=== PATIENT | female | born 1975 | race Caucasian/White ===

== ENCOUNTER 2017-08-02 10:33 | Inpatient (IN) ==
[2017-08-02] MEDS ORDERED: IOPAMIDOL 100 ML BOTTLE IV ONE (10:34)
[2017-08-02] MEDS ORDERED: LACTATED RINGERS 1,000 ML IV ONE (11:09)
[2017-08-02] MEDS ORDERED: ONDANSETRON 4 MG/2 ML VIAL IV ONE (11:09)
--- NOTE | 2017-08-02 11:22 | Emergency Department Note ---
Nausea/Vomiting/Diarrhea HPI - General Chief complaint: Urogenital-Female Stated complaint: Urinary retention Time Seen by Provider: 08/02/17 10:44 Source: patient Mode of arrival: ambulatory Limitations: no limitations - History of Present Illness HPI Narrative: 42-year-old female presents with nausea and vomiting 2 days. Today is the first day she is able to keep any fluids down but she has not been able to eat yet. She also has some diffuse abdominal pain and some epigastric pain. She states this started after she had pizza 2 nights ago but no one else has symptoms. She states she is not urinating as much as she usually does and is not having bowel movements like she usually does. She is also not been eating or drinking anything. She denies any fevers or chills. She has not vomited today. She has had her appendix out. She is due for her period In a couple weeks. She does not think she could be . - Related Data Home Medications Medication Instructions Recorded Confirmed Lisinopril [Zestril] 20 mg PO DAILY 05/23/15 08/02/17 Norgestimate-Ethinyl Estradiol 1 each PO DAILY 05/24/15 05/10/16 [Ortho Tri-Cyclen 28 Tablet] Previous Rx's Medication Instructions Recorded Cyclobenzaprine [Flexeril] 10 mg PO TID PRN #20 tablet 05/10/16 methylPREDNISolone [Medrol Dose 1 packet PO DAILY #1 tab.ds.pk 05/10/16 Pack] Allergies Allergy/AdvReac Type Severity Reaction Status Date / Time etodolac AdvReac Mild Nausea Verified 08/08/15 11:10 Review of Systems All systems ED: reviewed and negative except as stated. 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 Absent: conjunctival injection Neck: Present: normal inspection, full ROM Chest: Present: normal inspection, symmetric chest wall rise Respiratory: Present: normal lung sounds bilaterally Cardiovascular: Present: tachycardia, normal heart sounds Abdominal: Present: soft, tenderness, normal bowel sounds. Absent: distention, guarding, rebound, rigidity Abdominal tenderness: Present: RUQ, LUQ, epigastrium, mild Extremities: Present: normal inspection, full ROM Neurological: Present: alert, oriented X3 Psychiatric: Present: normal affect, normal mood Skin: Present: warm, dry, intact Course Course Narrative: She will be admitted by Dr. Lopez. He thinks she may have Crohn's disease and needs to be treated for a flare. Cipro and Flagyl have been started. Pain is controlled at this time. Vital Signs Temperature 96.9 F L 08/02/17 10:35 Pulse Rate 118 H 08/02/17 10:35 Respiratory Rate 20 08/02/17 10:35 Blood Pressure 176/107 08/02/17 10:35 Pulse Oximetry (%) 98 08/02/17 10:35 Temperature 96.9 F L 08/02/17 10:35 Pulse Rate 88 08/02/17 12:46 Respiratory Rate 16 08/02/17 12:46 Blood Pressure 126/80 08/02/17 12:46 Pulse Oximetry (%) 98 08/02/17 12:46 Nausea/Vomiting/Diarrhea - Lab Data Lab results reviewed: Yes I reviewed the patient's lab results. Result diagrams: 08/02/17 11:20 08/02/17 11:20 Lab Results 08/02/17 08/02/17 08/02/17 Range/Units 11:20 11:20 11:20 WBC 20.9 H (4.5-11.0) K/mcL RBC 5.07 (4.00-5.20) M/mcL Hgb 15.9 H (12.0-15.0) g/dL Hct 46.9 (36.0-48.0) % MCV 92.4 (80.0-100.0) fL MCH 31.2 (26.0-34.0) pg MCHC 33.8 (31.0-36.0) g/dL RDW 12.1 (11.5-14.5) % Plt Count 463 H (140-440) K/mcL MPV 7.8 (7.4-10.4) fL Gran % 80.4 H (38.0-78.0) % Lymph % (Auto) 13.6 L (15.5-49.0) % [place] % (Auto) 5.3 (1.0-12.0) % Eos % (Auto) 0.4 (0.0-7.0) % Baso % (Auto) 0.3 (0.0-2.0) % Gran # 16.8 H (1.8-8.0) K/mcL Lymph # (Auto) 2.8 (1.5-4.8) K/mcL [place] # (Auto) 1.1 H (0.1-0.9) K/mcL Eos # (Auto) 0.1 (0.0-0.7) K/mcL Baso # (Auto) 0.1 (0.0-0.3) K/mcL VBG Lactic Acid (0.5-2.2) mmol/L Sodium 131 L (133-145) mmol/L Potassium 3.0 L (3.3-5.1) mmol/L Chloride 89 L (96-108) mmol/L Carbon Dioxide 26 (22-30) mmol/L Anion Gap 16.0 (8-16) BUN 9 (6-20) mg/dl Creatinine 1.0 (0.6-1.1) mg/dl GFR Calculation 70 Glucose 131 H (70-105) mg/dL Calcium 9.1 (8.6-10.4) mg/dl Total Bilirubin 0.6 (0.0-1.0) mg/dL AST 20 (0-37) U/l ALT 13 (0-40) U/l Alkaline Phosphatase 51 (39-117) U/L Total Protein 8.0 (5.9-8.4) gm/dL Albumin 4.6 (3.2-5.2) gm/dL Globulin 3.4 (2.2-3.7) gm/dL Albumin/Globulin Ratio 1.4 (1.0-2.3) Lipase 25 (7-60) U/L Urine Color Urine Appearance Urine pH (5.0-9.0) Ur Specific [place] (1.000-1.035) Urine Protein (NEG) mg/dL Urine Glucose (UA) (NEG) mg/dL Urine Ketones (NEG) mg/dL Urine Occult Blood (<0.03) mg/dL Urine Nitrate (NEG) Urine Bilirubin (NEG) mg/dL Urine Urobilinogen (NEG) mg/dL Ur Leukocyte Esterase (NEG) /uL Urine RBC (0-1) /hpf Urine WBC (0-4) /hpf Ur Squamous Epith Cells (0-4) /hpf Urine Bacteria (0) /hpf Hyaline Casts (0-2) /lpf Urine Mucus (0) /hpf Ur Culture Indicated? 08/02/17 08/02/17 Range/Units 11:26 12:20 WBC (4.5-11.0) K/mcL RBC (4.00-5.20) M/mcL Hgb (12.0-15.0) g/dL Hct (36.0-48.0) % MCV (80.0-100.0) fL MCH (26.0-34.0) pg MCHC (31.0-36.0) g/dL RDW (11.5-14.5) % Plt Count (140-440) K/mcL MPV (7.4-10.4) fL Gran % (38.0-78.0) % Lymph % (Auto) (15.5-49.0) % [place] % (Auto) (1.0-12.0) % Eos % (Auto) (0.0-7.0) % Baso % (Auto) (0.0-2.0) % Gran # (1.8-8.0) K/mcL Lymph # (Auto) (1.5-4.8) K/mcL [place] # (Auto) (0.1-0.9) K/mcL Eos # (Auto) (0.0-0.7) K/mcL Baso # (Auto) (0.0-0.3) K/mcL VBG Lactic Acid 1.4 (0.5-2.2) mmol/L Sodium (133-145) mmol/L Potassium (3.3-5.1) mmol/L Chloride (96-108) mmol/L Carbon Dioxide (22-30) mmol/L Anion Gap (8-16) BUN (6-20) mg/dl Creatinine (0.6-1.1) mg/dl GFR Calculation Glucose (70-105) mg/dL Calcium (8.6-10.4) mg/dl Total Bilirubin (0.0-1.0) mg/dL AST (0-37) U/l ALT (0-40) U/l Alkaline Phosphatase (39-117) U/L Total Protein (5.9-8.4) gm/dL Albumin (3.2-5.2) gm/dL Globulin (2.2-3.7) gm/dL Albumin/Globulin Ratio (1.0-2.3) Lipase (7-60) U/L Urine Color Yellow Urine Appearance Hazy Urine pH 6.0 (5.0-9.0) Ur Specific [place] 1.013 (1.000-1.035) Urine Protein Neg (NEG) mg/dL Urine Glucose (UA) Negative (NEG) mg/dL Urine Ketones Neg (NEG) mg/dL Urine Occult Blood Neg (<0.03) mg/dL Urine Nitrate Neg (NEG) Urine Bilirubin Neg (NEG) mg/dL Urine Urobilinogen Neg (NEG) mg/dL Ur Leukocyte Esterase Neg (NEG) /uL Urine RBC 1 (0-1) /hpf Urine WBC 4 (0-4) /hpf Ur Squamous Epith Cells 9 H (0-4) /hpf Urine Bacteria Few A (0) /hpf Hyaline Casts 6 H (0-2) /lpf Urine Mucus Few (0) /hpf Ur Culture Indicated? No - Radiology Data Radiology results reviewed: Yes I reviewed the patient's radiology results. 1. Small amount of ascites. No peritoneal mass or enhancement. 2. Abnormal ileum with dilatation and wall thickening. Small bowel lymphoma is possible. Systemic processes including celiac disease or possible. 3. Small right pleural effusion. Right lower lobe volume loss or infiltrate Disposition Pt seen by COUNTY MANAGER/PA only: Yes Clinical Impression: Abdominal pain, Ascites Disposition: Xfer As Inpt ([facility]) Condition: Fair Referrals: Maggy Toure ARNP [Primary Care Provider] -
[2017-08-02 11:55] LABS: Basophils # (Auto) 0.1 K/mcL (0.0-0.3); Basophils % (Auto) 0.3 % (0.0-2.0); Eosinophils # (Auto) 0.1 K/mcL (0.0-0.7); Eosinophils % (Auto) 0.4 % (0.0-7.0); Granulocytes % (Auto) 80.4 % (38.0-78.0); Lymphocytes # (Auto) 2.8 K/mcL (1.5-4.8); Lymphocytes % (Auto) 13.6 % (15.5-49.0); Mean Cell Volume 92.4 fL (80.0-100.0); Mean Corpuscular HGB Conc 33.8 g/dL (31.0-36.0); Mean Corpuscular Hemoglobin 31.2 pg (26.0-34.0); Monocytes # (Auto) 1.1 K/mcL (0.1-0.9); Monocytes % (Auto) 5.3 % (1.0-12.0); Platelet Count 463 K/mcL (140-440); RBC 5.07 M/mcL (4.00-5.20); Red Cell Distribution Width 12.1 % (11.5-14.5)
[2017-08-02 11:56] LABS: Appearance,Urine HAZY; Bacteria,Urine FEW /hpf (0); Bilirubin,Urine NEG (NEG); Color,Urine YELLOW; Glucose,Urine (UA) NEGATIVE (NEG); Leukocyte Esterase,Urine NEG /uL (NEG); Mucus,Urine FEW /hpf (0); Protein,Urine NEG (NEG); Specific Gravity,Urine 1.013 (1.000-1.035); Urine Blood NEG mg/dL (<0.03); Urine Hyaline Cast 6 /lpf (0-2); Urine RBC 1 /hpf (0-1); Urine Squamous Epithelial Cell 9 /hpf (0-4); Urine WBC 4 /hpf (0-4); Urobilinogen,Urine NEG (NEG)
[2017-08-02 12:06] LABS: ALT/SGPT 13 U/l (0-40); Albumin 4.6 gm/dL (3.2-5.2); Albumin/Globulin Ratio 1.4 (1.0-2.3); Alkaline Phosphatase 51 U/L (39-117); Blood Urea Nitrogen 9 mg/dl (6-20)
[2017-08-02] MEDS ORDERED: PROMETHAZINE 25 MG/ML VIAL IV ONE (12:08)
[2017-08-02] MEDS ORDERED: fentaNYL 100 MCG/2 ML VIAL IV ONE (12:08)
[2017-08-02 13:18] LABS: Lipase 25 U/L (7-60)
[2017-08-02] MEDS ORDERED: metroNIDAZOLE 500 MG/100 ML BAG IV ONE (14:12)
[2017-08-02] MEDS ORDERED: CIPROFLOXACIN 400 MG/200 ML BAG IV ONE (14:12)
--- NOTE | 2017-08-02 14:34 | Cat Scan Report ---
ORIGINAL REPORT CLINICAL INFORMATION: Abdominal pain. Nausea and vomiting. Elevated white blood cell count (20,000). COMPARISON: 05/23/2015 TECHNIQUE: Axial images were obtained through the abdomen and pelvis. Sagittally and coronally reformatted images. 80 mL contrast material injected intravenously. Oral contrast material was given FINDINGS: Small right pleural effusion and right basilar volume loss or infiltrate. No left pleural effusion. No pericardial effusion. There is a small amount of ascitic fluid. There is mild perihepatic fluid. There is fluid within the pelvis and right lower quadrant. No peritoneal mass or enhancement identified. Ascitic fluid appears simple without septation or loculation. Etiology is not certain. Liver is negative. No focal intrahepatic abnormality. Liver contour is smooth. No evidence for cirrhosis. No focal intrahepatic abnormality. Gallbladder is present. No calcified gallstones. No dilated bile ducts. Pancreas appears intrinsically normal. No pancreatic mass. No pancreatic edema or enlargement. No evidence for pancreatitis. No peripancreatic contained fluid collection. No pseudocyst. No splenomegaly. Normal enhancement of splenic and portal veins. Negative adrenal glands. Kidneys are negative. No solid or cystic mass. No hydronephrosis. No retroperitoneal lymphadenopathy. There are mesenteric lymph nodes nodes but these are not enlarged. There are probably physiologic and nonspecific. Uterus is present and anteflexed. No ovarian mass. : Is normal. No detectable colonic mass. Appendix is been removed. No diverticulitis. Small bowel is abnormal. The jejunum is within normal limits. Ileum is dilated. Ileum measures approximately 3.5 cm in cross-sectional diameter. In the distal ileum in the right lower quadrant there is diffuse wall thickening. No evidence for mechanical small bowel obstruction. The terminal ileum is normal and contrast material is present in the cecum. Primary small bowel abnormality is considered most likely. Neoplasm is possible. Small bowel lymphoma arising in the distal ileum is possible. Systemic disease including celiac disease is possible. Surgical evaluation or capsule endoscopy may be helpful. Lumbar spine is negative. Sacrum and pelvis are negative. Abdominal aorta is normal. Celiac trunk and superior mesenteric artery are normal. Normal enhancement of superior mesenteric vein. IMPRESSION: 1. Small amount of ascites. No peritoneal mass or enhancement. 2. Abnormal ileum with dilatation and wall thickening. Small bowel lymphoma is possible. Systemic processes including celiac disease or possible. 3. Small right pleural effusion. Right lower lobe volume loss or infiltrate The exam was performed using radiation dose optimization techniques including, but not limited to, automated exposure control, adjustment of the mA and/or kV according to patient size and use of iterative reconstruction technique. ADDENDUM #1 Addendum: Dr. Lopez suggesting Crohn's disease as a possible diagnosis. There are no strictures or evidence for fistula. Terminal ileum is not significantly narrowed. There is no discrete mass. Crohn's disease is however possible as there is bowel wall thickening, especially in the ileum. Hypervascularity is not appreciated. There is no intramural fat. Interpreted and Authenticated by: Jayme Iqbal 08/02/17
[2017-08-02] MEDS ORDERED: PROMETHAZINE 25 MG/ML VIAL IV PRN ×2 (14:50→15:51)
[2017-08-02] MEDS ORDERED: 0.9 % SODIUM CHLORIDE 1,000 ML IV SCH (15:30)
[2017-08-02] MEDS ORDERED: ONDANSETRON 4 MG/2 ML VIAL IV PRN (15:46)
[2017-08-02] MEDS ORDERED: HYDROmorphone 2 MG/ML VIAL IV PRN (15:46)
[2017-08-02] MEDS ORDERED: ACETAMINOPHEN 325 MG TABLET PO PRN (15:46)
[2017-08-02] MEDS: 0.9 % SODIUM CHLORIDE 1,000 ML IV SCH (16:10)
--- NOTE | 2017-08-02 16:19 | General Surg History&Physical ---
History of Present Illness Patient information: Note initiated : 08/02/17 at 4:16 pm Service Date, if different from initiated Date: [] Patient: Kelly Nj a 42 y/o F admitted on 08/02/17 for Urinary retention. Chief Complaint: [] HPI: Ms. Nj is a 42 year old F admitted with abdominal pain nausea vomiting and diarrhea. The patient gives a two-week history of general malaise. She has a 2 day history of mid abdominal pain primarily in the lower abdomen but also in the upper abdomen. This pain was associated with multiple episodes of nausea and vomiting and she estimates that she vomited over 20 times. She also had 2 episodes of explosive diarrhea. She did not have any rectal bleeding. Her pain now is primarily in the hypogastrium. She gives a history of having intermittent diarrhea over the past few weeks. She was seen in the emergency room where it was noted that she had an elevated white blood count of 20.9. CT scan shows thickening of the distal ileum leading up to the cecum. The patient had appendectomy in May 2015. Pathology on that was said to show simple acute appendicitis. She is admitted with presumed inflammatory bowel disease and will be treated accordingly. Inflammatory bowel disease panel will be ordered. After initial treatment she will be probably discharged on Pentasa and low-dose steroids with follow-up by gastroenterology. Review of Systems All systems PM: reviewed and no additional remarkable complaints except as stated - Constitutional malaise - Musculoskeletal neck pain - Neurological headache(s) Past History Past medical history: No known chronic medical illness Past surgical history: Right knee arthroscopy Laparoscopic appendectomy C-spine fusion from old cervical injury with this disease Past family history: Diabetes mellitus Breast cancer Lymphoma Neck cancer Past social history: Never smoker Occasional alcohol intake Denies drug use Medications and Allergies Home Medications Medication Instructions Recorded Confirmed Type Norgestimate-Ethinyl Estradiol 1 each PO DAILY 05/24/15 08/02/17 History [Ortho Tri-Cyclen 28 Tablet] Citalopram [Celexa] 20 mg PO DAILY 08/02/17 08/02/17 History Cyclobenzaprine HCl 5 mg PO DAILY PRN 08/02/17 08/02/17 History Lisinopril/Hctz 20/12.5MG 1 tablet PO DAILY 08/02/17 08/02/17 History [Zestoretic 20/12.5MG] Metoprolol Tartrate [Lopressor] 25 mg PO DAILY 08/02/17 08/02/17 History Allergies Allergy/AdvReac Type Severity Reaction Status Date / Time etodolac AdvReac Mild Nausea Verified 08/08/15 11:10 Exam Temp Pulse Resp BP Pulse Ox 98.7 F 84 16 125/83 97 08/02/17 15:21 08/02/17 15:21 08/02/17 12:46 08/02/17 15:21 08/02/17 15:21 - General physical appearance well developed, well nourished, moderate pain, obese - Eyes PERRL, normal ocular movement - ENT normal pinna, normal nares, normal mucosa, no hearing loss, no congestion - Head Head exam IM: Present: atraumatic, normocephalic - Neck no masses, no bruits, trachea midline, no lymphadectomy, no venous distension - Cardiovascular Cardiovascular exam IM: Present: normal rate and rhythm, RRR, +S1, +S2. Absent : JVD, tachycardia - Respiratory normal expansion, normal respiratory effort, clear to percussion, clear to auscultation - Abdomen Abdomen: Present: soft, tender (tenderness in mid abdomen and periumbilical area and right lower quadrant; more prominent with deep palpation; no mass noted ; good active bowel sounds), bowel sounds Hernia: Present: none - Genitourinary Present: normal external genitalia - Integumentary Present: no rash, no growths, no abnormal pigmentation - Neurologic Present: normal coordination, normal sensation - Musculoskeletal Present: normal gait, normal posture - Psychiatric Present: oriented to time, oriented to person, oriented to place, speech is normal, memory intact Assessment and Plan (1) Inflammatory bowel disease Zosyn 3.375 g IV every 6 hours Flagyl 500 mg IV every 6 hours Solu-Medrol 62 mg IV every 12 hours Inflammatory bowel disease panel Slowly advance diet as patient tolerates Symptomatic treatment of nausea and vomiting Status: Acute (2) Hypokalemia, gastrointestinal losses Replacement of potassium chloride IV and monitor closely Status: Acute
[2017-08-02] MEDS ORDERED: POTASSIUM CHLORIDE 40 MEQ in DEXTROSE 5% IN WATER 500 ML IV ONE (16:25)
[2017-08-02] MEDS: PANTOPRAZOLE 40 MG VIAL IV SCH (16:57)
[2017-08-02] MEDS: PIPERACILLIN SODIUM/TAZOBACTAM 3.375 GM in DEXTROSE 5% IN WATER 50 ML IV SCH (17:13)
[2017-08-02] MEDS ORDERED: POTASSIUM CHLORIDE 20 MEQ/10 ML VIAL IV ONE ×2 (18:00→22:00)
[2017-08-02] MEDS: metroNIDAZOLE 500 MG/100 ML BAG IV SCH ×2 (18:05→23:27)
[2017-08-02] MEDS: 0.9 % SODIUM CHLORIDE 10 ML SYRINGE IV SCH ×2 (21:23)
[2017-08-02] MEDS: methylPREDNISolone SOD SUCC 125 MG/2 ML VIAL IV SCH (21:23)
[2017-08-02] MEDS: ZOLPIDEM 5 MG TABLET PO PRN (21:24)
[2017-08-02] MEDS: POTASSIUM CHLORIDE 40 MEQ in DEXTROSE 5% IN WATER 500 ML IV SCH (22:27)
[2017-08-03] MEDS: PIPERACILLIN SODIUM/TAZOBACTAM 3.375 GM in DEXTROSE 5% IN WATER 50 ML IV SCH ×4 (00:53→18:59)
[2017-08-03] MEDS: 0.9 % SODIUM CHLORIDE 1,000 ML IV SCH ×3 (02:44→14:00)
[2017-08-03] MEDS: 0.9 % SODIUM CHLORIDE 10 ML SYRINGE IV SCH ×6 (05:38→20:41)
[2017-08-03] MEDS: metroNIDAZOLE 500 MG/100 ML BAG IV SCH ×4 (05:40→23:52)
[2017-08-03 05:57] LABS: Basophils # (Auto) 0 K/mcL (0.0-0.3); Basophils % (Auto) 0 % (0.0-2.0); Eosinophils # (Auto) 0.2 K/mcL (0.0-0.7); Eosinophils % (Auto) 1.7 % (0.0-7.0); Granulocytes % (Auto) 91.2 % (38.0-78.0); Lymphocytes # (Auto) 0.7 K/mcL (1.5-4.8); Lymphocytes % (Auto) 6.1 % (15.5-49.0); Mean Cell Volume 93.2 fL (80.0-100.0); Mean Corpuscular HGB Conc 34.1 g/dL (31.0-36.0); Mean Corpuscular Hemoglobin 31.8 pg (26.0-34.0); Monocytes # (Auto) 0.1 K/mcL (0.1-0.9); Platelet Count 286 K/mcL (140-440); RBC 3.59 M/mcL (4.00-5.20); Red Cell Distribution Width 12.1 % (11.5-14.5)
[2017-08-03 06:01] LABS: ALT/SGPT 10 U/l (0-40); Albumin 3.8 gm/dL (3.2-5.2); Albumin/Globulin Ratio 1.6 (1.0-2.3); Alkaline Phosphatase 36 U/L (39-117); Bilirubin,Direct < 0.2 mg/dL (0.0-0.3); Blood Urea Nitrogen 7 mg/dl (6-20); Gamma Glutamyl Transpeptidase 51 U/L (5-36); Uric Acid 3.9 mg/dL (2.5-8.0)
[2017-08-03] MEDS ORDERED: POTASSIUM CHLORIDE 20 MEQ/10 ML VIAL IV ONE (06:14)
[2017-08-03] MEDS: POTASSIUM CHLORIDE 40 MEQ in DEXTROSE 5% IN WATER 500 ML IV SCH (06:26)
[2017-08-03] MEDS: PANTOPRAZOLE 40 MG VIAL IV SCH ×2 (06:39→17:04)
[2017-08-03] MEDS: CITALOPRAM 20 MG TABLET PO SCH (08:35)
[2017-08-03] MEDS: methylPREDNISolone SOD SUCC 125 MG/2 ML VIAL IV SCH ×2 (08:35→20:41)
[2017-08-03] MEDS: ENOXAPARIN 40 MG/0.4 ML SYRINGE SQ SCH (08:35)
[2017-08-03] MEDS ORDERED: MAGNESIUM SULFATE 32.48 MEQ in DEXTROSE 5% IN WATER 50 ML IV ONE (12:38)
[2017-08-03] MEDS ORDERED: POTASSIUM PHOSPHATE 40 MEQ in DEXTROSE 5% IN WATER 500 ML IV ONE ×2 (13:00→13:32)
[2017-08-03] MEDS ORDERED: MAGNESIUM SULFATE 4 GM/100 ML BAG IV ONE ×2 (13:00→16:00)
--- NOTE | 2017-08-03 13:40 | General Surgery Progress Note ---
Subjective Patient reports: feels better, pain is less, tolerating liquids well, no flatus , no bowel movement, afebrile Narrative: Note initiated : 08/03/17 at 1:35 pm Service Date, if different from initiated Date: [] Patient: Kelly Nj 42 y/o F admitted on 08/02/17 for Urinary retention. Chief Complaint: [patient feels much better. Her abdominal pain is less.. She has had more diarrheal stools. She has less tenderness. She has been afebrile.. Her white blood count is down to 11.1 on the specimen tested. In spite of these values I'm somewhat concerned that this may be a spurious test result.] Objective Temp Pulse Resp BP Pulse Ox 98.1 F 95 H 16 162/75 95 08/03/17 11:17 08/03/17 03:02 08/03/17 11:17 08/03/17 11:17 08/03/17 11:17 - Additional Data Intake & Output - Last 24 hours: Intake & Output 08/01/17 08/02/17 08/03/17 08/04/17 05:59 05:59 05:59 05:59 Intake Total 3100 / 3100 190 / 190 Output Total 2024 / 2024 350 / 350 Balance 1075 / 1075 -160 / -160 Weight 167 lb 167 lb - General physical appearance well developed, well nourished, no distress - Eyes PERRL, normal ocular movement - ENT normal pinna, normal nares, normal mucosa, no hearing loss, no congestion - Neck no masses, no bruits, trachea midline, no lymphadectomy, no venous distension - Respiratory normal expansion, normal respiratory effort, clear to percussion, clear to auscultation - Cardiovascular Cardiovascular exam: Present: normal rate and rhythm, RRR, +S1, +S2. Absent: JVD, tachycardia - Abdomen tender (much less tenderness in right lower quadrant and hypogastric region), bowel sounds (present), surgical scars (none), masses (none) - Integumentary no rash, no growths, no abnormal pigmentation - Neurologic normal coordination, normal sensation - Musculoskeletal normal gait, normal posture - Psychiatric oriented to time, oriented to person, oriented to place, speech is normal, memory intact - Labs 08/03/17 04:14 08/03/17 04:14 Diabetes panel 08/02/17 08/03/17 Range/Units 22:48 04:14 Sodium 135 (133-145) mmol/L Potassium 3.3 3.8 (3.3-5.1) mmol/L Chloride 99 (96-108) mmol/L Carbon Dioxide 25 (22-30) mmol/L BUN 7 (6-20) mg/dl Creatinine 0.8 (0.6-1.1) mg/dl Glucose 170 H (70-105) mg/dL Calcium 7.8 L (8.6-10.4) mg/dl AST 19 (0-37) U/l ALT 10 (0-40) U/l Alkaline Phosphatase 36 L (39-117) U/L Total Protein 6.2 (5.9-8.4) gm/dL Albumin 3.8 (3.2-5.2) gm/dL Triglycerides 120 (<150) mg/dl Calcium panel 08/03/17 Range/Units 04:14 Calcium 7.8 L (8.6-10.4) mg/dl Phosphorus 1.7 L (2.7-4.5) mg/dL Albumin 3.8 (3.2-5.2) gm/dL Pituitary panel 08/02/17 08/03/17 Range/Units 22:48 04:14 Sodium 135 (133-145) mmol/L Potassium 3.3 3.8 (3.3-5.1) mmol/L Chloride 99 (96-108) mmol/L Carbon Dioxide 25 (22-30) mmol/L BUN 7 (6-20) mg/dl Creatinine 0.8 (0.6-1.1) mg/dl Glucose 170 H (70-105) mg/dL Calcium 7.8 L (8.6-10.4) mg/dl Adrenal panel 08/02/17 08/03/17 Range/Units 22:48 04:14 Sodium 135 (133-145) mmol/L Potassium 3.3 3.8 (3.3-5.1) mmol/L Chloride 99 (96-108) mmol/L Carbon Dioxide 25 (22-30) mmol/L BUN 7 (6-20) mg/dl Creatinine 0.8 (0.6-1.1) mg/dl Glucose 170 H (70-105) mg/dL Calcium 7.8 L (8.6-10.4) mg/dl Total Bilirubin 0.3 (0.0-1.0) mg/dL AST 19 (0-37) U/l ALT 10 (0-40) U/l Alkaline Phosphatase 36 L (39-117) U/L Total Protein 6.2 (5.9-8.4) gm/dL Albumin 3.8 (3.2-5.2) gm/dL Assessment and Plan (1) Inflammatory bowel disease Status: Acute Assessment and plan: Clinically improved with much less pain Current Visit: Yes (2) Hypokalemia, gastrointestinal losses Status: Acute Assessment and plan: Resolved by today's test result; will check another value in the morning Current Visit: No - Time Spent With Patient Total time spent is greater than 50% in coordination of care (as documented) at patient's floor/unit and/or counseling patient:
[2017-08-03] MEDS: LISINOPRIL 20 MG TABLET PO SCH (13:59)
[2017-08-03] MEDS: ZOLPIDEM 5 MG TABLET PO PRN (20:41)
[2017-08-03] MEDS: CYCLOBENZAPRINE 10 MG TABLET PO PRN (21:35)
[2017-08-04] MEDS: 0.9 % SODIUM CHLORIDE 1,000 ML IV SCH ×4 (00:01→16:12)
[2017-08-04] MEDS: PIPERACILLIN SODIUM/TAZOBACTAM 3.375 GM in DEXTROSE 5% IN WATER 50 ML IV SCH ×4 (01:14→19:40)
[2017-08-04] MEDS: metroNIDAZOLE 500 MG/100 ML BAG IV SCH ×4 (05:30→23:50)
[2017-08-04] MEDS: 0.9 % SODIUM CHLORIDE 10 ML SYRINGE IV SCH ×5 (05:30→20:15)
[2017-08-04 06:01] LABS: ALT/SGPT 10 U/l (0-40); Albumin 3.7 gm/dL (3.2-5.2); Albumin/Globulin Ratio 1.6 (1.0-2.3); Alkaline Phosphatase 35 U/L (39-117); Bilirubin,Direct < 0.2 mg/dL (0.0-0.3); Blood Urea Nitrogen 6 mg/dl (6-20); Gamma Glutamyl Transpeptidase 68 U/L (5-36); Uric Acid 2.1 mg/dL (2.5-8.0)
[2017-08-04 06:11] LABS: Basophils # (Auto) 0 K/mcL (0.0-0.3); Basophils % (Auto) 0.2 % (0.0-2.0); Eosinophils # (Auto) 0.1 K/mcL (0.0-0.7); Eosinophils % (Auto) 0.6 % (0.0-7.0); Granulocytes % (Auto) 90.5 % (38.0-78.0); Lymphocytes # (Auto) 0.9 K/mcL (1.5-4.8); Lymphocytes % (Auto) 6.4 % (15.5-49.0); Mean Cell Volume 91.4 fL (80.0-100.0); Mean Corpuscular HGB Conc 35.1 g/dL (31.0-36.0); Monocytes # (Auto) 0.3 K/mcL (0.1-0.9); Monocytes % (Auto) 2.3 % (1.0-12.0); Platelet Count 299 K/mcL (140-440); RBC 3.34 M/mcL (4.00-5.20); Red Cell Distribution Width 11.8 % (11.5-14.5)
[2017-08-04] MEDS: PANTOPRAZOLE 40 MG VIAL IV SCH (06:43)
[2017-08-04] MEDS: CYCLOBENZAPRINE 10 MG TABLET PO PRN (06:53)
[2017-08-04] MEDS: CITALOPRAM 20 MG TABLET PO SCH (08:47)
[2017-08-04] MEDS: ENOXAPARIN 40 MG/0.4 ML SYRINGE SQ SCH (08:47)
[2017-08-04] MEDS: LISINOPRIL 20 MG TABLET PO SCH (08:47)
[2017-08-04] MEDS: HYDROCHLOROTHIAZIDE 12.5 MG CAPSULE PO SCH (08:47)
[2017-08-04] MEDS: METOPROLOL TARTRATE 25 MG TABLET PO SCH (08:47)
[2017-08-04] MEDS: methylPREDNISolone SOD SUCC 125 MG/2 ML VIAL IV SCH ×2 (08:47→20:14)
[2017-08-04] MEDS ORDERED: LISINOPRIL 20 MG TABLET PO SCH (09:00)
[2017-08-04] MEDS ORDERED: LISINOPRIL/HCTZ 20/12.5MG TABLET PO SCH (09:00)
--- NOTE | 2017-08-04 15:00 | General Surgery Progress Note ---
Subjective Patient reports: feels better, pain is less, tolerating liquids well, flatus, bowel movement, diarrhea, afebrile Narrative: Note initiated : 08/04/17 at 2:58 pm Service Date, if different from initiated Date: [] Patient: Kelly Nj 42 y/o F admitted on 08/02/17 for Urinary retention. Chief Complaint: [patient is feeling better. she is tolerating clear liquids without difficulty and complains of being hungry. She denies nausea. She is having multiple liquid bowel movements with some crampy pain prior to having her bowel movements. She is afebrile. White blood count is 13.5. Electrolytes are unremarkable.] Objective Temp Pulse Resp BP Pulse Ox 97.6 F 100 H 18 172/91 95 08/04/17 11:58 08/04/17 03:57 08/04/17 11:58 08/04/17 07:07 08/04/17 11:58 - Additional Data Intake & Output - Last 24 hours: Intake & Output 08/02/17 08/03/17 08/04/17 08/05/17 05:59 05:59 05:59 05:59 Intake Total 3100 / 3100 4510 / 4510 1790 / 1790 Output Total 2024 / 2024 3150 / 3150 1200 / 1200 Balance 1075 / 1075 1360 / 1360 590 / 590 Weight 167 lb 193 lb 1.6 oz - General physical appearance well developed, well nourished, no distress - Eyes PERRL - ENT normal pinna, normal nares, normal mucosa, no hearing loss, no congestion - Neck no masses, no bruits, trachea midline, no lymphadectomy, no venous distension - Respiratory normal expansion, normal respiratory effort, clear to percussion, clear to auscultation - Cardiovascular Cardiovascular exam: Present: normal rate and rhythm, RRR, +S1, +S2. Absent: JVD, tachycardia - Abdomen non tender, bowel sounds (present), surgical scars (none), masses (none) - Integumentary no rash, no growths, no abnormal pigmentation - Neurologic normal coordination, normal sensation - Musculoskeletal normal gait, normal posture - Psychiatric oriented to time, oriented to person, oriented to place, speech is normal, memory intact - Labs 08/04/17 04:26 05/28/18 04:26 Diabetes panel 08/03/17 08/04/17 Range/Units 18:42 04:26 Sodium 138 (133-145) mmol/L Potassium 3.9 4.0 (3.3-5.1) mmol/L Chloride 103 (96-108) mmol/L Carbon Dioxide 23 (22-30) mmol/L BUN 6 (6-20) mg/dl Creatinine 0.7 (0.6-1.1) mg/dl Glucose 142 H (70-105) mg/dL Calcium 7.3 L (8.6-10.4) mg/dl AST 14 (0-37) U/l ALT 10 (0-40) U/l Alkaline Phosphatase 35 L (39-117) U/L Total Protein 6.0 (5.9-8.4) gm/dL Albumin 3.7 (3.2-5.2) gm/dL Triglycerides 124 (<150) mg/dl Calcium panel 08/04/17 Range/Units 04:26 Calcium 7.3 L (8.6-10.4) mg/dl Phosphorus 3.3 (2.7-4.5) mg/dL Albumin 3.7 (3.2-5.2) gm/dL Pituitary panel 08/03/17 08/04/17 Range/Units 18:42 04:26 Sodium 138 (133-145) mmol/L Potassium 3.9 4.0 (3.3-5.1) mmol/L Chloride 103 (96-108) mmol/L Carbon Dioxide 23 (22-30) mmol/L BUN 6 (6-20) mg/dl Creatinine 0.7 (0.6-1.1) mg/dl Glucose 142 H (70-105) mg/dL Calcium 7.3 L (8.6-10.4) mg/dl Adrenal panel 08/03/17 08/04/17 Range/Units 18:42 04:26 Sodium 138 (133-145) mmol/L Potassium 3.9 4.0 (3.3-5.1) mmol/L Chloride 103 (96-108) mmol/L Carbon Dioxide 23 (22-30) mmol/L BUN 6 (6-20) mg/dl Creatinine 0.7 (0.6-1.1) mg/dl Glucose 142 H (70-105) mg/dL Calcium 7.3 L (8.6-10.4) mg/dl Total Bilirubin 0.2 (0.0-1.0) mg/dL AST 14 (0-37) U/l ALT 10 (0-40) U/l Alkaline Phosphatase 35 L (39-117) U/L Total Protein 6.0 (5.9-8.4) gm/dL Albumin 3.7 (3.2-5.2) gm/dL Assessment and Plan (1) Inflammatory bowel disease Status: Acute Assessment and plan: Clinically improved with much less pain Advanced to full liquid diet TKO IV switched to oral medication for pain possible discharge 24-48 hours Current Visit: Yes (2) Hypokalemia, gastrointestinal losses Status: Acute Assessment and plan: Resolved by today's test result; will check another value in the morning Current Visit: No - Time Spent With Patient Total time spent is greater than 50% in coordination of care (as documented) at patient's floor/unit and/or counseling patient:
[2017-08-04] MEDS: oxyCODONE/APAP 5/325MG TABLET PO PRN ×2 (15:37→19:49)
[2017-08-04] MEDS: PANTOPRAZOLE 40 MG TABLET PO SCH (17:04)
[2017-08-04] MEDS: ZOLPIDEM 5 MG TABLET PO PRN (20:14)
[2017-08-05] MEDS: PIPERACILLIN SODIUM/TAZOBACTAM 3.375 GM in DEXTROSE 5% IN WATER 50 ML IV SCH ×4 (01:16→18:52)
[2017-08-05] MEDS: oxyCODONE/APAP 5/325MG TABLET PO PRN ×6 (02:10→23:30)
[2017-08-05 05:19] LABS: Basophils # (Auto) 0 K/mcL (0.0-0.3); Basophils % (Auto) 0 % (0.0-2.0); Eosinophils # (Auto) 0 K/mcL (0.0-0.7); Eosinophils % (Auto) 0 % (0.0-7.0); Granulocytes % (Auto) 89.7 % (38.0-78.0); Lymphocytes # (Auto) 1.2 K/mcL (1.5-4.8); Lymphocytes % (Auto) 7.9 % (15.5-49.0); Mean Cell Volume 93.1 fL (80.0-100.0); Mean Corpuscular HGB Conc 34.3 g/dL (31.0-36.0); Mean Corpuscular Hemoglobin 31.9 pg (26.0-34.0); Monocytes # (Auto) 0.4 K/mcL (0.1-0.9); Monocytes % (Auto) 2.4 % (1.0-12.0); Platelet Count 293 K/mcL (140-440); RBC 3.48 M/mcL (4.00-5.20); Red Cell Distribution Width 11.9 % (11.5-14.5)
[2017-08-05 05:38] LABS: ALT/SGPT 14 U/l (0-40); Albumin 3.8 gm/dL (3.2-5.2); Albumin/Globulin Ratio 1.5 (1.0-2.3); Alkaline Phosphatase 37 U/L (39-117); Bilirubin,Direct < 0.2 mg/dL (0.0-0.3); Blood Urea Nitrogen 7 mg/dl (6-20); Gamma Glutamyl Transpeptidase 94 U/L (5-36); Uric Acid 2.3 mg/dL (2.5-8.0)
[2017-08-05] MEDS: metroNIDAZOLE 500 MG/100 ML BAG IV SCH ×4 (06:01→23:29)
[2017-08-05] MEDS: 0.9 % SODIUM CHLORIDE 10 ML SYRINGE IV SCH ×3 (06:01→21:35)
[2017-08-05] MEDS: PANTOPRAZOLE 40 MG TABLET PO SCH ×2 (07:00→17:21)
[2017-08-05] MEDS: methylPREDNISolone SOD SUCC 125 MG/2 ML VIAL IV SCH ×2 (07:12→21:35)
[2017-08-05] MEDS: LISINOPRIL 20 MG TABLET PO SCH ×2 (07:12→21:35)
[2017-08-05] MEDS: ENOXAPARIN 40 MG/0.4 ML SYRINGE SQ SCH (07:12)
[2017-08-05] MEDS: HYDROCHLOROTHIAZIDE 12.5 MG CAPSULE PO SCH (07:12)
[2017-08-05] MEDS: METOPROLOL TARTRATE 25 MG TABLET PO SCH (07:12)
[2017-08-05] MEDS: CITALOPRAM 20 MG TABLET PO SCH (07:12)
--- NOTE | 2017-08-05 14:12 | General Surgery Progress Note ---
Subjective Patient reports: feels better, pain is less, tolerating liquids well, flatus, bowel movement, diarrhea, afebrile Narrative: Note initiated : 08/05/17 at 2:10 pm Service Date, if different from initiated Date: [] Patient: Kelly Nj 42 y/o F admitted on 08/02/17 for Urinary Retention/ Inflammatory Bowel Disease. Chief Complaint: [patient is doing better with regards to her abdominal pain however she is having difficulty with hypertension with her blood pressure in the 190/110 range in spite of oral medications. Her bowel movements are less frequent and small in volume. She denies nausea. She does not have any dizziness.] Objective Temp Pulse Resp BP Pulse Ox 97.2 F 73 18 182/90 97 08/05/17 11:43 08/05/17 11:43 08/05/17 11:43 08/05/17 12:48 08/05/17 11:43 - Additional Data Intake & Output - Last 24 hours: Intake & Output 08/03/17 08/04/17 08/05/17 08/06/17 05:59 05:59 05:59 05:59 Intake Total 3100 / 3100 4510 / 4510 4750 / 4750 790 / 790 Output Total 2024 / 2024 3150 / 3150 2700 / 2700 600 / 600 Balance 1075 / 1075 1360 / 1360 2049 190 / 190 Weight 167 lb 193 lb 1.6 oz 193 lb 8 oz - General physical appearance well developed, well nourished, no distress - Eyes PERRL, normal ocular movement - ENT normal pinna, normal nares, normal mucosa, no hearing loss, no congestion - Neck no masses, no bruits, trachea midline, no lymphadectomy, no venous distension - Respiratory normal expansion, normal respiratory effort, clear to auscultation - Cardiovascular Cardiovascular exam: Present: normal rate and rhythm, RRR, +S1, +S2, tachycardia. Absent: JVD - Abdomen non tender, tender (mild mid abdominal tenderness with good active bowel sounds) , bowel sounds (present), surgical scars (none), masses (none) - Integumentary no rash, no growths, no abnormal pigmentation - Neurologic normal coordination, normal sensation - Musculoskeletal normal gait, normal posture - Psychiatric oriented to time, oriented to person, oriented to place, speech is normal, memory intact - Labs 08/05/17 04:10 08/05/17 04:10 Diabetes panel 08/05/17 Range/Units 04:10 Sodium 138 (133-145) mmol/L Potassium 3.7 (3.3-5.1) mmol/L Chloride 101 (96-108) mmol/L Carbon Dioxide 23 (22-30) mmol/L BUN 7 (6-20) mg/dl Creatinine 0.8 (0.6-1.1) mg/dl Glucose 146 H (70-105) mg/dL Calcium 7.7 L (8.6-10.4) mg/dl AST 17 (0-37) U/l ALT 14 (0-40) U/l Alkaline Phosphatase 37 L (39-117) U/L Total Protein 6.3 (5.9-8.4) gm/dL Albumin 3.8 (3.2-5.2) gm/dL Triglycerides 157 H (<150) mg/dl Calcium panel 08/05/17 Range/Units 04:10 Calcium 7.7 L (8.6-10.4) mg/dl Phosphorus 3.6 (2.7-4.5) mg/dL Albumin 3.8 (3.2-5.2) gm/dL Pituitary panel 08/05/17 Range/Units 04:10 Sodium 138 (133-145) mmol/L Potassium 3.7 (3.3-5.1) mmol/L Chloride 101 (96-108) mmol/L Carbon Dioxide 23 (22-30) mmol/L BUN 7 (6-20) mg/dl Creatinine 0.8 (0.6-1.1) mg/dl Glucose 146 H (70-105) mg/dL Calcium 7.7 L (8.6-10.4) mg/dl Adrenal panel 08/05/17 Range/Units 04:10 Sodium 138 (133-145) mmol/L Potassium 3.7 (3.3-5.1) mmol/L Chloride 101 (96-108) mmol/L Carbon Dioxide 23 (22-30) mmol/L BUN 7 (6-20) mg/dl Creatinine 0.8 (0.6-1.1) mg/dl Glucose 146 H (70-105) mg/dL Calcium 7.7 L (8.6-10.4) mg/dl Total Bilirubin 0.2 (0.0-1.0) mg/dL AST 17 (0-37) U/l ALT 14 (0-40) U/l Alkaline Phosphatase 37 L (39-117) U/L Total Protein 6.3 (5.9-8.4) gm/dL Albumin 3.8 (3.2-5.2) gm/dL Assessment and Plan (1) Inflammatory bowel disease Status: Acute Assessment and plan: Clinically improved with much less pain Regular diet TKO IV switched to oral medication for pain possible discharge 24-48 hours Current Visit: Yes (2) Hypokalemia, gastrointestinal losses Status: Acute Assessment and plan: Resolved by today's test result; will check another value in the morning Current Visit: No (3) Hypertension Status: Acute Assessment and plan: Increase lisinopril dose and add amlodipine Delay discharge home Current Visit: Yes - Time Spent With Patient Total time spent is greater than 50% in coordination of care (as documented) at patient's floor/unit and/or counseling patient:
[2017-08-05] MEDS: amLODIPine 10 MG TABLET PO SCH (15:08)
[2017-08-05] MEDS: 0.9 % SODIUM CHLORIDE 1,000 ML IV SCH (15:21)
[2017-08-05] MEDS ORDERED: LISINOPRIL 20 MG TABLET PO SCH (21:00)
[2017-08-06] MEDS: PIPERACILLIN SODIUM/TAZOBACTAM 3.375 GM in DEXTROSE 5% IN WATER 50 ML IV SCH ×3 (01:03→13:11)
[2017-08-06] MEDS: ZOLPIDEM 5 MG TABLET PO PRN (01:06)
[2017-08-06] MEDS: 0.9 % SODIUM CHLORIDE 10 ML SYRINGE IV SCH ×2 (05:27→13:28)
[2017-08-06] MEDS: metroNIDAZOLE 500 MG/100 ML BAG IV SCH ×2 (05:27→11:56)
[2017-08-06 05:29] LABS: Basophils # (Auto) 0 K/mcL (0.0-0.3); Basophils % (Auto) 0 % (0.0-2.0); Eosinophils # (Auto) 0 K/mcL (0.0-0.7); Eosinophils % (Auto) 0 % (0.0-7.0); Granulocytes % (Auto) 90.3 % (38.0-78.0); Lymphocytes % (Auto) 7.2 % (15.5-49.0); Mean Cell Volume 92.2 fL (80.0-100.0); Mean Corpuscular HGB Conc 34.5 g/dL (31.0-36.0); Mean Corpuscular Hemoglobin 31.8 pg (26.0-34.0); Monocytes # (Auto) 0.3 K/mcL (0.1-0.9); Monocytes % (Auto) 2.5 % (1.0-12.0); Platelet Count 326 K/mcL (140-440); Red Cell Distribution Width 12.1 % (11.5-14.5)
[2017-08-06 05:50] LABS: ALT/SGPT 14 U/l (0-40); Albumin 3.9 gm/dL (3.2-5.2); Albumin/Globulin Ratio 1.4 (1.0-2.3); Alkaline Phosphatase 38 U/L (39-117); Bilirubin,Direct < 0.2 mg/dL (0.0-0.3); Blood Urea Nitrogen 11 mg/dl (6-20); Gamma Glutamyl Transpeptidase 97 U/L (5-36); Uric Acid 2.7 mg/dL (2.5-8.0)
[2017-08-06] MEDS: PANTOPRAZOLE 40 MG TABLET PO SCH (07:44)
[2017-08-06] MEDS: oxyCODONE/APAP 5/325MG TABLET PO PRN ×3 (07:54→16:39)
[2017-08-06] MEDS: LISINOPRIL 20 MG TABLET PO SCH (09:58)
[2017-08-06] MEDS: HYDROCHLOROTHIAZIDE 12.5 MG CAPSULE PO SCH (09:58)
[2017-08-06] MEDS: ENOXAPARIN 40 MG/0.4 ML SYRINGE SQ SCH (09:59)
[2017-08-06] MEDS: CITALOPRAM 20 MG TABLET PO SCH (09:59)
[2017-08-06] MEDS: amLODIPine 10 MG TABLET PO SCH (09:59)
[2017-08-06] MEDS: METOPROLOL TARTRATE 25 MG TABLET PO SCH (09:59)
[2017-08-06] MEDS: methylPREDNISolone SOD SUCC 125 MG/2 ML VIAL IV SCH (10:00)
--- NOTE | 2017-08-06 14:50 | Discharge Summary ---
Providers - Providers Patient information: Note initiated : 08/06/17 at 2:47 pm Service Date, if different from initiated Date: [] Patient: Kelly Nj 42 y/o F admitted on 08/02/17 for Urinary Retention/ Inflammatory Bowel Disease. Chief Complaint: [] Date of admission: 08/02/17 Discharge date: 08/06/17 Attending physician: Cain Lopez Hospitalization Hospital course: 42-year-old female admitted July 25 for recurrent right lower quadrant pain with associated diarrhea nausea and vomiting. She also had leukocytosis. CT scan showed thickening of the terminal ileum with increased mesenteric lymphadenopathy . It is suspected that she has Crohn's disease. She was started on antibiotics, Solu-Medrol, analgesics. She has been stable and improved daily with regards to her bowel. She did have elevation of her blood pressure and her blood pressure medicine was adjusted.. Her blood pressure levels are improving. She is now stable for discharge home. Discharge diagnosis: inflammatory bowel disease Secondary discharge diagnosis: Hypertension Reason for admission: ABDOMINAL PAIN NAUSEA VOMITING diarrhea Procedures: None Complications: None Exam Temp Pulse Resp BP Pulse Ox 97.6 F 87 18 149/93 96 08/06/17 12:00 08/06/17 14:19 08/06/17 12:00 08/06/17 14:22 08/06/17 14:19 - General physical appearance well developed, well nourished, no distress - Eyes PERRL, normal ocular movement - ENT normal pinna, normal nares, normal mucosa, no hearing loss, no congestion - Head Head exam IM: Present: atraumatic, normocephalic - Neck no masses, no bruits, trachea midline, no lymphadectomy, no venous distension - Cardiovascular Cardiovascular exam IM: Present: normal rate and rhythm - Respiratory normal expansion, normal respiratory effort, clear to percussion, clear to auscultation - Abdomen Abdomen: Present: soft, tender, bowel sounds Hernia: Present: none - Genitourinary Present: normal external genitalia - Integumentary Present: no rash, no growths, no abnormal pigmentation - Neurologic Present: normal coordination, normal sensation - Musculoskeletal Present: normal gait, normal posture - Psychiatric Present: oriented to time, oriented to person, oriented to place, speech is normal, memory intact Discharge Plan - Patient/Caregiver Discharge Instructions Activity: increase activity as tolerated Diet: Low Fat Prescriptions: amLODIPine [Norvasc] 10 mg PO DAILY #30 tablet Lisinopril [Zestril] 20 mg PO BID #60 tablet Mesalamine [Asacol Hd] 800 mg PO TID #90 tablet. oxyCODONE HCL/ACETAMINOPHEN [Endocet 10-325 mg Tablet] 1 each PO Q6HP PRN #60 PRN Reason: Pain Level > 6 predniSONE [Prednisone] 10 mg PO BID #60 tablet Zolpidem [Ambien] 10 mg PO HSP PRN #30 tab PRN Reason: Insomnia - Follow up Plan Follow up with: Maggy Toure ARNP [Primary Care Provider] - Disposition: Home, Self-Care Prognosis: Good Rehab Potential: Good I certify that the patient requires SNF services.: No Overall status at discharge: patient is not back to baseline Pending Studies Resuscitation Status Full Code Diet Regular Diet Start FriAugust 05 1415 Amlodipine Besylate (Norvasc) 10 mg PO DAILY [facility] Last Admin: 08/06/17 09:59 Dose: 10 mg Admin: 08/05/17 15:08 Dose: 10 mg Citalopram Hydrobromide (Celexa) 20 mg PO DAILY [facility] Last Admin: 08/06/17 09:59 Dose: 20 mg Admin: 08/05/17 07:12 Dose: 20 mg Admin: 08/04/17 08:47 Dose: 20 mg Admin: 08/03/17 08:35 Dose: 20 mg Cyclobenzaprine HCl (Flexeril) 5 mg PO DAILYP PRN PRN Reason: Pain Last Admin: 08/04/17 06:53 Dose: 5 mg Admin: 08/03/17 21:35 Dose: 5 mg Enoxaparin Sodium (Lovenox) 40 mg SQ DAILY [facility] Last Admin: 08/06/17 09:59 Dose: 40 mg Admin: 08/05/17 07:12 Dose: 40 mg Admin: 08/04/17 08:47 Dose: 40 mg Admin: 08/03/17 08:35 Dose: 40 mg Hydrochlorothiazide (Oretic) 12.5 mg PO DAILY [facility] Last Admin: 08/06/17 09:58 Dose: 12.5 mg Admin: 08/05/17 07:12 Dose: 12.5 mg Admin: 08/04/17 08:47 Dose: 12.5 mg Metronidazole (Flagyl) 500 mg in 100 mls @ 100 mls/hr IV Q6H JAYLYN Last Infusion: 08/06/17 12:56 Dose: 0 mls/hr Admin: 08/06/17 11:56 Dose: 100 mls/hr Infusion: 08/06/17 06:27 Dose: 0 mls/hr Admin: 08/06/17 05:27 Dose: 100 mls/hr Infusion: 08/06/17 00:29 Dose: 100 mls/hr Admin: 08/05/17 23:29 Dose: 100 mls/hr Infusion: 08/05/17 18:20 Dose: 100 mls/hr Admin: 08/05/17 17:20 Dose: 100 mls/hr Infusion: 08/05/17 12:32 Dose: 100 mls/hr Admin: 08/05/17 11:32 Dose: 100 mls/hr Infusion: 08/05/17 07:01 Dose: 0 mls/hr Admin: 08/05/17 06:01 Dose: 100 mls/hr Infusion: 08/05/17 00:50 Dose: 100 mls/hr Admin: 08/04/17 23:50 Dose: 100 mls/hr Infusion: 08/04/17 18:36 Dose: 100 mls/hr Admin: 08/04/17 17:36 Dose: 100 mls/hr Infusion: 08/04/17 12:40 Dose: 100 mls/hr Admin: 08/04/17 11:40 Dose: 100 mls/hr Infusion: 08/04/17 06:30 Dose: 100 mls/hr Admin: 08/04/17 05:30 Dose: 100 mls/hr Infusion: 08/04/17 00:52 Dose: 100 mls/hr Admin: 08/03/17 23:52 Dose: 100 mls/hr Infusion: 08/03/17 18:50 Dose: 100 mls/hr Admin: 08/03/17 17:50 Dose: 100 mls/hr Infusion: 08/03/17 13:02 Dose: 100 mls/hr Admin: 08/03/17 12:02 Dose: 100 mls/hr Infusion: 08/03/17 06:40 Dose: 0 mls/hr Admin: 08/03/17 05:40 Dose: 100 mls/hr Infusion: 08/03/17 00:27 Dose: 100 mls/hr Admin: 08/02/17 23:27 Dose: 100 mls/hr Infusion: 08/02/17 19:05 Dose: 100 mls/hr Admin: 08/02/17 18:05 Dose: 100 mls/hr Piperacillin Sod/Tazobactam (Sod 3.375 gm/ Dextrose) 50 mls @ 100 mls/hr IV Q6H JAYLYN Last Admin: 08/06/17 13:11 Dose: 100 mls/hr Infusion: 08/06/17 08:15 Dose: 0 mls/hr Admin: 08/06/17 07:44 Dose: 100 mls/hr Infusion: 08/06/17 01:33 Dose: 100 mls/hr Admin: 08/06/17 01:03 Dose: 100 mls/hr Infusion: 08/05/17 19:22 Dose: 100 mls/hr Admin: 08/05/17 18:52 Dose: 100 mls/hr Infusion: 08/05/17 13:13 Dose: 100 mls/hr Admin: 08/05/17 12:43 Dose: 100 mls/hr Infusion: 08/05/17 07:30 Dose: 0 mls/hr Admin: 08/05/17 07:00 Dose: 100 mls/hr Infusion: 08/05/17 01:50 Dose: 0 mls/hr Admin: 08/05/17 01:16 Dose: 100 mls/hr Infusion: 08/04/17 20:10 Dose: 100 mls/hr Admin: 08/04/17 19:40 Dose: 100 mls/hr Infusion: 08/04/17 13:25 Dose: 100 mls/hr Admin: 08/04/17 12:55 Dose: 100 mls/hr Infusion: 08/04/17 07:13 Dose: 100 mls/hr Admin: 08/04/17 06:43 Dose: 100 mls/hr Infusion: 08/04/17 01:44 Dose: 100 mls/hr Admin: 08/04/17 01:14 Dose: 100 mls/hr Infusion: 08/03/17 19:29 Dose: 100 mls/hr Admin: 08/03/17 18:59 Dose: 100 mls/hr Infusion: 08/03/17 13:58 Dose: 100 mls/hr Admin: 08/03/17 13:28 Dose: 100 mls/hr Infusion: 08/03/17 07:10 Dose: 0 mls/hr Admin: 08/03/17 06:40 Dose: 100 mls/hr Infusion: 08/03/17 01:23 Dose: 100 mls/hr Admin: 08/03/17 00:53 Dose: 100 mls/hr Infusion: 08/02/17 17:43 Dose: 100 mls/hr Admin: 08/02/17 17:13 Dose: 100 mls/hr Sodium Chloride (Sodium Chloride 0.9%) 1,000 mls @ 20 mls/hr IV .Q24H [facility] Last Admin: 08/05/17 15:21 Dose: 20 mls/hr Admin: 08/04/17 16:12 Dose: Not Given Lisinopril (Zestril) 20 mg PO BID [facility] Last Admin: 08/06/17 09:58 Dose: 20 mg Admin: 08/05/17 21:35 Dose: 20 mg Methylprednisolone Sodium Succinate (Solu-Medrol) 62.5 mg IV Q12 [facility] Last Admin: 08/06/17 10:00 Dose: 62.5 mg Admin: 08/05/17 21:35 Dose: 62.5 mg Admin: 08/05/17 07:12 Dose: 62.5 mg Admin: 08/04/17 20:14 Dose: 62.5 mg Admin: 08/04/17 08:47 Dose: 62.5 mg Admin: 08/03/17 20:41 Dose: 62.5 mg Admin: 08/03/17 08:35 Dose: 62.5 mg Admin: 08/02/17 21:23 Dose: 62.5 mg Metoprolol Tartrate (Lopressor) 25 mg PO DAILY [facility] Last Admin: 08/06/17 09:59 Dose: 25 mg Admin: 08/05/17 07:12 Dose: 25 mg Admin: 08/04/17 08:47 Dose: 25 mg Morphine Sulfate (Morphine) 4 mg IV Q2HP PRN PRN Reason: PAIN LEVEL > 6 Last Admin: 08/06/17 13:23 Dose: 4 mg Admin: 08/04/17 03:55 Dose: 4 mg Admin: 08/03/17 19:00 Dose: 4 mg Admin: 08/03/17 15:37 Dose: 4 mg Admin: 08/03/17 12:45 Dose: 4 mg Oxycodone/Acetaminophen (Percocet 5-325 Mg) 1 tab PO Q4HP PRN PRN Reason: PAIN LEVEL 3-6 Last Admin: 08/06/17 12:00 Dose: 1 tab Admin: 08/06/17 07:54 Dose: 1 tab Admin: 08/05/17 23:30 Dose: 1 tab Admin: 08/05/17 18:55 Dose: 1 tab Admin: 08/05/17 15:39 Dose: 1 tab Admin: 08/05/17 11:41 Dose: 1 tab Admin: 08/05/17 07:02 Dose: 1 tab Admin: 08/05/17 02:10 Dose: 1 tab Admin: 08/04/17 19:49 Dose: 1 tab Admin: 08/04/17 15:37 Dose: 1 tab Pantoprazole Sodium (Protonix) 40 mg PO BIDAC JAYLYN Last Admin: 08/06/17 07:44 Dose: 40 mg Admin: 08/05/17 17:21 Dose: 40 mg Admin: 08/05/17 07:00 Dose: 40 mg Admin: 08/04/17 17:04 Dose: 40 mg Sodium Chloride (Saline Flush) 10 ml IV Q8 JAYLYN Last Admin: 08/06/17 13:28 Dose: Not Given Admin: 08/06/17 05:27 Dose: 10 ml Admin: 08/05/17 21:35 Dose: 10 ml Admin: 08/05/17 13:44 Dose: Not Given Admin: 08/05/17 06:01 Dose: 10 ml Admin: 08/04/17 20:15 Dose: 10 ml Admin: 08/04/17 12:56 Dose: 10 ml Admin: 08/04/17 05:30 Dose: 10 ml Admin: 08/03/17 20:41 Dose: 10 ml Admin: 08/03/17 12:58 Dose: Not Given Admin: 08/03/17 05:38 Dose: Not Given Admin: 08/02/17 21:23 Dose: Not Given Zolpidem Tartrate (Ambien) 5 mg PO HSP PRN PRN Reason: Insomnia Last Admin: 08/06/17 01:06 Dose: 5 mg Admin: 08/04/17 20:14 Dose: 5 mg Admin: 08/03/17 20:41 Dose: 5 mg Admin: 08/02/17 21:24 Dose: 5 mg Shift Summary 08/06/17 04:32 Shift Summary by Letha Yo Pt slept most of the night after getting Ambien. Up ad zehra. Had pain meds twice tonight. States stools are getting more firm. Hoping to go home today. Initialized on 08/06/17 04:32 - END OF NOTE
[2017-08-06] MEDS: 0.9 % SODIUM CHLORIDE 1,000 ML IV SCH (15:12)
== END 2017-08-06 17:05 | disposition home or self-care (01) | DRG 392 ==
LOC: ED 10:33 → MEDSUR 15:45
PROVIDERS: ADMIT Family Medicine Adult Medicine; ATTEND Family Medicine Adult Medicine

== ENCOUNTER 2017-08-12 12:39 | Inpatient (IN) ==
[2017-08-12] MEDS ORDERED: 0.9 % SODIUM CHLORIDE 1,000 ML IV ONE ×2 (12:53→12:58)
[2017-08-12] MEDS ORDERED: fentaNYL 100 MCG/2 ML VIAL IV ONE (12:58)
[2017-08-12] MEDS ORDERED: ONDANSETRON 4 MG/2 ML VIAL IV ONE (12:58)
[2017-08-12] MEDS ORDERED: ONDANSETRON ODT 4 MG TABLET SL ONE (13:06)
[2017-08-12 13:22] LABS: Basophils # (Auto) 0.3 K/mcL (0.0-0.3); Basophils % (Auto) 1.2 % (0.0-2.0); Eosinophils # (Auto) 0 K/mcL (0.0-0.7); Eosinophils % (Auto) 0.1 % (0.0-7.0); Granulocytes % (Auto) 85.7 % (38.0-78.0); Lymphocytes # (Auto) 2.9 K/mcL (1.5-4.8); Lymphocytes % (Auto) 10.7 % (15.5-49.0); Mean Cell Volume 92.3 fL (80.0-100.0); Mean Corpuscular HGB Conc 33.5 g/dL (31.0-36.0); Mean Corpuscular Hemoglobin 30.9 pg (26.0-34.0); Monocytes # (Auto) 0.6 K/mcL (0.1-0.9); Monocytes % (Auto) 2.3 % (1.0-12.0); Platelet Count 563 K/mcL (140-440); RBC 4.73 M/mcL (4.00-5.20); Red Cell Distribution Width 12.6 % (11.5-14.5)
[2017-08-12 13:43] LABS: ALT/SGPT 26 U/l (0-40); Albumin 4.5 gm/dL (3.2-5.2); Albumin/Globulin Ratio 1.6 (1.0-2.3); Alkaline Phosphatase 42 U/L (39-117); Blood Urea Nitrogen 12 mg/dl (6-20); Lipase 28 U/L (7-60)
[2017-08-12] MEDS: fentaNYL 100 MCG/2 ML VIAL IV PRN ×2 (13:43→15:06)
[2017-08-12] MEDS: 0.9 % SODIUM CHLORIDE 1,000 ML IV SCH ×2 (14:00→22:54)
[2017-08-12] MEDS ORDERED: CIPROFLOXACIN 400 MG/200 ML BAG IV ONE (14:19)
[2017-08-12] MEDS ORDERED: metroNIDAZOLE 500 MG/100 ML BAG IV ONE (14:19)
[2017-08-12] MEDS ORDERED: PROMETHAZINE 25 MG/ML VIAL IV PRN (14:37)
--- NOTE | 2017-08-12 16:05 | Cat Scan Report ---
CLINICAL INFORMATION: Abdominal pain. Crohn's disease [ COMPARISON: 05/23/2015 and 08/02/[address] TECHNIQUE: Following enteric contrast, 80 cc of Isovue-300 were injected intravenously, and 60 seconds later, 0.625 mm helical slices were obtained from the mid heart through the subtrochanteric regions. Following reconstruction, 2.5 mm sagittal, coronal and axial reformatted images were processed and reviewed at bone, lung and soft tissue windows. Five minutes later, 0.625 mm helical slices were obtained from the mid heart through the kidneys and viewed at soft tissue windows.The exam was performed using radiation dose optimization techniques including, but not limited to, automated exposure control, adjustment of the mA and/or kV according to patient size and use of iterative reconstruction technique. FINDINGS: Lung bases show only minimal atelectasis in the posterior lower lobes. There are no effusions. The visualized heart is grossly normal Images through the abdomen show minimal fatty change within the liver - no focal lesions. The gallbladder and bile ducts are normal CBD is 5 mm.Both kidneys, adrenal glands, spleen, pancreas and aorta, including aortic branches are normal in size, configuration and attenuation without focal lesion. Images through the pelvis show uterus, ovaries and urinary bladder to be normal. The appendix is is absent. The small bowel is incompletely distended. Minimal dilatation/wall thickening noted in the the terminal ileum compatible with the clinical diagnosis of Crohn's disease. The distal right colon and proximal transverse colon demonstrate moderate concentric wall thickening, submucosal low-attenuation and inflammation in the pericolonic fat. This is a new finding. The remainder of the colon is normal. Bone windows show no osseous abnormality IMPRESSION: 1. Moderate concentric wall thickening of the distal right colon and proximal transverse colon with inflammation in the pericolonic fat. This could represent infection, Crohn's disease inflammation or ischemia. Suggest colonoscopy for more definitive diagnosis. The terminal ileum shows only minimal wall thickening compatible with the diagnosis of Crohn's disease. Most of the small bowel is unremarkable. Interpreted and Authenticated by: Jayme Koch 08/12/17
[2017-08-12] MEDS ORDERED: ACETAMINOPHEN 325 MG TABLET PO PRN (17:15)
--- NOTE | 2017-08-12 17:33 | General Surg History&Physical ---
History of Present Illness Patient information: Note initiated : 08/12/17 at 5:33 pm Service Date, if different from initiated Date: [] Patient: Kelly Nj a 42 y/o F admitted on 08/12/17 for nausea, abdominal pain. Chief Complaint: [] HPI: Ms. Nj is a 42 year old F history of terminal ileal infection and inflammation that was thought to be due to inflammatory bowel disease. She was admitted on 08/02/17 with a complaint of nausea vomiting and diarrhea and general malaise of 2 weeks' duration. She had multiple episodes of nausea with vomiting and an explosive diarrhea. She was seen in the emergency room on 526 with a white count of 20.9.. CT of the abdomen showed thickening of the terminal ileum leading up to the cecum. She was admitted on 52 through 5:30. She was treated with antibiotics and Solu-Medrol. She improved daily and was finally discharged home on the in stable condition. She states that she was doing well until 1 day prior to admission when she awakened with right sided abdominal pain with nausea and vomiting. She also had fever chills sweats. She had multiple episodes of emesis and she had multiple loose stools. She was seen in the emergency room and was noted to have a white count of 26, 000. CT of the abdomen showed concentric wall thickening of the distal right colon and proximal transverse colon with inflammation in the pericolonic fat. The changes in the terminal ileum showed minimal wall thickening suggesting that this is improved. The patient is admitted and will be treated with IV antibiotics and continued on IV steroids. She will probably need to have colonoscopy during this hospitalization. Review of Systems - Constitutional chills, fever(s), malaise, weight loss - EENT Nose, mouth and throat: no dizziness, no hoarseness - Cardiovascular no dyspnea on exertion, no pedal edema, no rapid heart rate, no slow heart rate - Respiratory no dyspnea on exertion, no wheezing, no chest congestion - Gastrointestinal abdominal pain, change in bowel habits, change in stool character, diarrhea, heartburn, loose stools, nausea, vomiting - Genitourinary Genitourinary: no difficulty urinating, no urinary frequency, no urinary incontinence - Musculoskeletal neck pain, no arthralgias, no back pain, no joint swelling - Integumentary no change in pigmentation, no changing lesions, no new lesions, no pruritus, no rash - Neurological no abnormal gait, no behavioral changes, no dizziness, no numbness, no syncope, no vertigo - Psychiatric abnormal sleep pattern, anxiety, depression - Endocrine no fatigue, no palpitations - Hematologic/Lymphatic no easy bleeding, no easy bruising, no lymphadenopathy - Allergic/Immunologic no tongue swelling, no throat swelling, no uticaria, no wheezing, no lip swelling Past History Past medical history: Hypertension Past surgical history: Right knee arthroscopy Laparoscopic appendectomy C-spine fusion from old cervical injury Past family history: Diabetes mellitus Breast cancer Lymphoma Neck cancer Past social history: Never smoker Occasional alcohol intake Denies drug use Medications and Allergies Home Medications Medication Instructions Recorded Confirmed Type RX: Norgestimate-Ethinyl Estradiol 1 each PO DAILY 05/24/15 08/12/17 History [Ortho Tri-Cyclen 28 Tablet] Citalopram [Celexa] 20 mg PO DAILY 08/02/17 08/12/17 History RX: Cyclobenzaprine HCl 5 mg PO DAILY PRN 08/02/17 08/12/17 History RX: Metoprolol Tartrate [Lopressor] 25 mg PO DAILY 08/02/17 08/12/17 History RX: Lisinopril [Zestril] 20 mg PO BID #60 tablet 08/06/17 08/12/17 Rx RX: Zolpidem [Ambien] 10 mg PO HSP PRN #30 tab 08/06/17 08/12/17 Rx RX: amLODIPine [Norvasc] 10 mg PO DAILY #30 tablet 08/06/17 08/12/17 Rx RX: oxyCODONE HCL/ACETAMINOPHEN 1 each PO Q6HP PRN #60 08/06/17 08/12/17 Rx [Endocet 10-325 mg Tablet] predniSONE [Prednisone] 10 mg PO BID #60 tablet 08/06/17 08/12/17 Rx mesalamine 800 mg tablet,delayed 800 mg PO TID #90 tablet. 08/07/17 08/12/17 Rx release Allergies Allergy/AdvReac Type Severity Reaction Status Date / Time etodolac AdvReac Mild Nausea Verified 08/12/17 12:43 Exam Temp Pulse Resp BP Pulse Ox 98.7 F 96 H 16 149/94 98 08/12/17 16:00 08/12/17 16:00 08/12/17 16:00 08/12/17 16:00 08/12/17 16:00 - General physical appearance well developed, well nourished, no distress - Eyes PERRL, normal ocular movement - ENT normal pinna, normal nares, normal mucosa, no hearing loss, no congestion - Head Head exam IM: Present: atraumatic, normocephalic - Neck no masses, no bruits, trachea midline, no lymphadectomy, no venous distension - Cardiovascular Cardiovascular exam IM: Present: normal rate and rhythm - Respiratory normal expansion, normal respiratory effort, clear to percussion, clear to auscultation - Abdomen Abdomen: Present: tender (tenderness and hypogastrium in bilateral lower quadrants, more prominent in the right lower quadrant; no palpable masses; good active bowel sounds), bowel sounds Hernia: Present: none - Genitourinary Present: normal external genitalia - Integumentary Present: no rash, no growths, no abnormal pigmentation - Neurologic Present: normal coordination, normal sensation - Musculoskeletal Present: normal gait, normal posture - Psychiatric Present: oriented to time, oriented to person, oriented to place, speech is normal, memory intact Assessment and Plan (1) Inflammatory bowel disease Exacerbation of inflammatory bowel disease Ciprofloxacin 500 mg IV twice daily Metronidazole 500 mg IV every 6 hours Solu-Medrol 62 mg IV every 12 hours Nothing by mouth for now and try to advance diet in the morning Symptomatic treatment of nausea and vomiting Status: Acute (2) Hypertension We will continue home medications Status: Acute
[2017-08-12] MEDS: PIPERACILLIN SODIUM/TAZOBACTAM 3.375 GM in DEXTROSE 5% IN WATER 50 ML IV SCH (19:09)
[2017-08-12] MEDS ORDERED: CYCLOBENZAPRINE 10 MG TABLET PO PRN (19:39)
[2017-08-12] MEDS: LISINOPRIL 20 MG TABLET PO SCH (21:29)
[2017-08-12] MEDS: oxyCODONE/APAP 10/325MG TABLET PO PRN (21:29)
[2017-08-12] MEDS: 0.9 % SODIUM CHLORIDE 10 ML SYRINGE IV SCH (21:31)
[2017-08-12] MEDS: ZOLPIDEM 5 MG TABLET PO PRN (22:02)
[2017-08-13] MEDS: PIPERACILLIN SODIUM/TAZOBACTAM 3.375 GM in DEXTROSE 5% IN WATER 50 ML IV SCH ×5 (00:15→23:41)
[2017-08-13] MEDS: metroNIDAZOLE 500 MG/100 ML BAG IV SCH ×4 (02:09→19:34)
[2017-08-13] MEDS: 0.9 % SODIUM CHLORIDE 1,000 ML IV SCH ×3 (04:38→23:41)
[2017-08-13] MEDS: 0.9 % SODIUM CHLORIDE 10 ML SYRINGE IV SCH ×4 (05:33→21:04)
[2017-08-13] MEDS: oxyCODONE/APAP 10/325MG TABLET PO PRN ×3 (05:37→17:58)
[2017-08-13] MEDS: PANTOPRAZOLE 40 MG VIAL IV SCH ×2 (07:42→17:59)
[2017-08-13] MEDS ORDERED: NORGESTIMATE ETHINYL ESTRADIOL PO SCH (09:00)
[2017-08-13 09:04] LABS: Basophils # (Auto) 0 K/mcL (0.0-0.3); Basophils % (Auto) 0.3 % (0.0-2.0); Eosinophils # (Auto) 0.4 K/mcL (0.0-0.7); Eosinophils % (Auto) 2.5 % (0.0-7.0); Lymphocytes # (Auto) 3.9 K/mcL (1.5-4.8); Lymphocytes % (Auto) 27.3 % (15.5-49.0); Mean Cell Volume 93.2 fL (80.0-100.0); Mean Corpuscular HGB Conc 34.2 g/dL (31.0-36.0); Mean Corpuscular Hemoglobin 31.9 pg (26.0-34.0); Monocytes # (Auto) 0.8 K/mcL (0.1-0.9); Monocytes % (Auto) 5.9 % (1.0-12.0); Platelet Count 400 K/mcL (140-440); RBC 3.87 M/mcL (4.00-5.20); Red Cell Distribution Width 12.3 % (11.5-14.5)
[2017-08-13] MEDS: CITALOPRAM 20 MG TABLET PO SCH (09:10)
[2017-08-13] MEDS: LISINOPRIL 20 MG TABLET PO SCH ×2 (09:10→21:02)
[2017-08-13] MEDS: METOPROLOL TARTRATE 25 MG TABLET PO SCH (09:10)
[2017-08-13] MEDS: amLODIPine 10 MG TABLET PO SCH (09:11)
[2017-08-13 10:04] LABS: ALT/SGPT 20 U/l (0-40); Albumin 3.3 gm/dL (3.2-5.2); Albumin/Globulin Ratio 1.3 (1.0-2.3); Alkaline Phosphatase 35 U/L (39-117); Bilirubin,Direct < 0.2 mg/dL (0.0-0.3); Blood Urea Nitrogen 6 mg/dl (6-20); Gamma Glutamyl Transpeptidase 70 U/L (5-36); Uric Acid 2.4 mg/dL (2.5-8.0)
[2017-08-13] MEDS ORDERED: ZOLPIDEM 5 MG TABLET PO PRN (10:54)
--- NOTE | 2017-08-13 11:41 | General Surgery Progress Note ---
Subjective Patient reports: feels better, pain is less, tolerating liquids well, flatus, diarrhea, afebrile Narrative: Note initiated : 08/13/17 at 11:39 am Service Date, if different from initiated Date: [] Patient: Kelly Nj 42 y/o F admitted on 08/12/17 for Nausea, Abdominal Pain /Inflammatory Bowel Disease. Chief Complaint: [Patient states that she feels better. She states that her pain is primarily in the left lower quadrant today. The suprapubic and right lower quadrant pain is significantly improved. She has been afebrile. She continues to have diarrheal stools but she has not seen any blood. her white blood count has decreased to 14.2. Phosphorus is 2.6. All of her other electrolytes are normal.] Objective Temp Pulse Resp BP Pulse Ox 98.3 F 91 H 14 131/83 96 08/13/17 08:00 08/13/17 08:00 08/13/17 07:46 08/13/17 08:00 08/13/17 08:00 - Additional Data Intake & Output - Last 24 hours: Intake & Output 08/11/17 08/12/17 08/13/17 08/14/17 05:59 05:59 05:59 05:59 Intake Total 4179 / 4179 150 / 150 Output Total 975 / 975 450 / 450 Balance 3204 / 3204 -300 / -300 Weight 168 lb - General physical appearance well developed, well nourished, moderate distress, moderate pain - Eyes PERRL, normal ocular movement - ENT normal pinna, normal nares, normal mucosa, no hearing loss, no congestion - Neck no masses, no bruits, trachea midline, no lymphadectomy, no venous distension - Respiratory normal expansion, normal respiratory effort, clear to auscultation - Cardiovascular Cardiovascular exam: Present: normal rate and rhythm, RRR, +S1, +S2. Absent: JVD, tachycardia - Abdomen tender (tenderness to palpation in right lower quadrant on deep palpation; good active bowel sounds; no palpable mass; no distention), bowel sounds (present), surgical scars (none), masses (none) - Integumentary no rash, no growths, no abnormal pigmentation - Neurologic normal coordination, normal sensation - Musculoskeletal normal gait, normal posture - Psychiatric oriented to time, oriented to person, oriented to place, speech is normal, memory intact - Labs 08/13/17 07:43 08/13/17 07:43 Diabetes panel 08/12/17 08/13/17 Range/Units 13:03 07:43 Sodium 137 138 (133-145) mmol/L Potassium 3.6 4.1 (3.3-5.1) mmol/L Chloride 94 L 102 (96-108) mmol/L Carbon Dioxide 27 21 L (22-30) mmol/L BUN 12 6 (6-20) mg/dl Creatinine 0.7 0.8 (0.6-1.1) mg/dl Glucose 171 H 96 (70-105) mg/dL Calcium 9.0 7.8 L (8.6-10.4) mg/dl AST 16 20 (0-37) U/l ALT 26 20 (0-40) U/l Alkaline Phosphatase 42 35 L (39-117) U/L Total Protein 7.4 5.8 L (5.9-8.4) gm/dL Albumin 4.5 3.3 (3.2-5.2) gm/dL Triglycerides 137 (<150) mg/dl Calcium panel 08/12/17 08/13/17 Range/Units 13:03 07:43 Calcium 9.0 7.8 L (8.6-10.4) mg/dl Phosphorus 2.6 L (2.7-4.5) mg/dL Albumin 4.5 3.3 (3.2-5.2) gm/dL Pituitary panel 08/12/17 08/13/17 Range/Units 13:03 07:43 Sodium 137 138 (133-145) mmol/L Potassium 3.6 4.1 (3.3-5.1) mmol/L Chloride 94 L 102 (96-108) mmol/L Carbon Dioxide 27 21 L (22-30) mmol/L BUN 12 6 (6-20) mg/dl Creatinine 0.7 0.8 (0.6-1.1) mg/dl Glucose 171 H 96 (70-105) mg/dL Calcium 9.0 7.8 L (8.6-10.4) mg/dl Adrenal panel 08/12/17 08/13/17 Range/Units 13:03 07:43 Sodium 137 138 (133-145) mmol/L Potassium 3.6 4.1 (3.3-5.1) mmol/L Chloride 94 L 102 (96-108) mmol/L Carbon Dioxide 27 21 L (22-30) mmol/L BUN 12 6 (6-20) mg/dl Creatinine 0.7 0.8 (0.6-1.1) mg/dl Glucose 171 H 96 (70-105) mg/dL Calcium 9.0 7.8 L (8.6-10.4) mg/dl Total Bilirubin 0.4 0.5 (0.0-1.0) mg/dL AST 16 20 (0-37) U/l ALT 26 20 (0-40) U/l Alkaline Phosphatase 42 35 L (39-117) U/L Total Protein 7.4 5.8 L (5.9-8.4) gm/dL Albumin 4.5 3.3 (3.2-5.2) gm/dL Assessment and Plan (1) Inflammatory bowel disease Status: Acute Assessment and plan: Will continue on present therapy for 3-4 days. Clear liquids will be added. IV will be decreased to 50 cc/h. Current Visit: No (2) Hypertension Status: Acute Current Visit: No - Time Spent With Patient Total time spent is greater than 50% in coordination of care (as documented) at patient's floor/unit and/or counseling patient:
[2017-08-13] MEDS ORDERED: POTASSIUM PHOSPHATE 40 MEQ in DEXTROSE 5% IN WATER 500 ML IV ONE (12:00)
[2017-08-13] MEDS: methylPREDNISolone SOD SUCC 125 MG/2 ML VIAL IV SCH (21:03)
[2017-08-13] MEDS: fentaNYL 100 MCG/2 ML VIAL IV PRN (21:10)
[2017-08-13] MEDS: ZOLPIDEM 5 MG TABLET PO PRN (21:11)
[2017-08-14] MEDS: 0.9 % SODIUM CHLORIDE 1,000 ML IV SCH ×4 (00:16→22:34)
[2017-08-14] MEDS: metroNIDAZOLE 500 MG/100 ML BAG IV SCH ×4 (01:01→19:17)
[2017-08-14] MEDS: oxyCODONE/APAP 10/325MG TABLET PO PRN ×3 (02:31→19:22)
[2017-08-14] MEDS: 0.9 % SODIUM CHLORIDE 10 ML SYRINGE IV SCH ×3 (05:22→22:38)
[2017-08-14] MEDS: PIPERACILLIN SODIUM/TAZOBACTAM 3.375 GM in DEXTROSE 5% IN WATER 50 ML IV SCH ×3 (05:22→18:21)
[2017-08-14] MEDS: fentaNYL 100 MCG/2 ML VIAL IV PRN ×3 (05:25→20:26)
[2017-08-14 07:21] LABS: Basophils # (Auto) 0 K/mcL (0.0-0.3); Basophils % (Auto) 0 % (0.0-2.0); Eosinophils # (Auto) 0.3 K/mcL (0.0-0.7); Eosinophils % (Auto) 1.7 % (0.0-7.0); Granulocytes % (Auto) 91.9 % (38.0-78.0); Lymphocytes # (Auto) 1.1 K/mcL (1.5-4.8); Mean Cell Volume 93.4 fL (80.0-100.0); Mean Corpuscular HGB Conc 33.5 g/dL (31.0-36.0); Mean Corpuscular Hemoglobin 31.3 pg (26.0-34.0); Monocytes # (Auto) 0.1 K/mcL (0.1-0.9); Monocytes % (Auto) 0.4 % (1.0-12.0); Platelet Count 465 K/mcL (140-440); RBC 4.11 M/mcL (4.00-5.20); Red Cell Distribution Width 12.3 % (11.5-14.5)
[2017-08-14 07:30] LABS: ALT/SGPT 28 U/l (0-40); Albumin 3.7 gm/dL (3.2-5.2); Albumin/Globulin Ratio 1.5 (1.0-2.3); Alkaline Phosphatase 37 U/L (39-117); Bilirubin,Direct < 0.2 mg/dL (0.0-0.3); Blood Urea Nitrogen 6 mg/dl (6-20); Gamma Glutamyl Transpeptidase 97 U/L (5-36); Uric Acid 2.4 mg/dL (2.5-8.0)
[2017-08-14] MEDS: PANTOPRAZOLE 40 MG VIAL IV SCH ×2 (08:33→17:01)
[2017-08-14] MEDS: METOPROLOL TARTRATE 25 MG TABLET PO SCH (08:34)
[2017-08-14] MEDS: LISINOPRIL 20 MG TABLET PO SCH ×2 (08:34→20:26)
[2017-08-14] MEDS: methylPREDNISolone SOD SUCC 125 MG/2 ML VIAL IV SCH ×2 (08:34→20:26)
[2017-08-14] MEDS: amLODIPine 10 MG TABLET PO SCH (08:34)
[2017-08-14] MEDS: CITALOPRAM 20 MG TABLET PO SCH (08:34)
[2017-08-14] MEDS ORDERED: METOPROLOL TARTRATE 25 MG TABLET PO SCH (09:00)
[2017-08-14] MEDS: NORGESTIMATE ETHINYL ESTRADIOL PO SCH (13:22)
[2017-08-14] MEDS: ZOLPIDEM 5 MG TABLET PO PRN (22:32)
[2017-08-15] MEDS: PIPERACILLIN SODIUM/TAZOBACTAM 3.375 GM in DEXTROSE 5% IN WATER 50 ML IV SCH ×5 (00:23→23:21)
[2017-08-15] MEDS: metroNIDAZOLE 500 MG/100 ML BAG IV SCH ×4 (01:25→19:55)
[2017-08-15] MEDS: 0.9 % SODIUM CHLORIDE 1,000 ML IV SCH ×4 (03:45→23:21)
[2017-08-15] MEDS: 0.9 % SODIUM CHLORIDE 10 ML SYRINGE IV SCH ×3 (05:05→21:09)
[2017-08-15 06:54] LABS: Basophils # (Auto) 0 K/mcL (0.0-0.3); Basophils % (Auto) 0 % (0.0-2.0); Eosinophils # (Auto) 0.4 K/mcL (0.0-0.7); Eosinophils % (Auto) 2.1 % (0.0-7.0); Granulocytes % (Auto) 90.6 % (38.0-78.0); Lymphocytes # (Auto) 1.1 K/mcL (1.5-4.8); Lymphocytes % (Auto) 5.6 % (15.5-49.0); Mean Cell Volume 93.9 fL (80.0-100.0); Mean Corpuscular HGB Conc 32.5 g/dL (31.0-36.0); Mean Corpuscular Hemoglobin 30.5 pg (26.0-34.0); Monocytes # (Auto) 0.3 K/mcL (0.1-0.9); Monocytes % (Auto) 1.7 % (1.0-12.0); Platelet Count 474 K/mcL (140-440); RBC 3.85 M/mcL (4.00-5.20); Red Cell Distribution Width 12.2 % (11.5-14.5)
[2017-08-15] MEDS: PANTOPRAZOLE 40 MG VIAL IV SCH ×2 (07:10→17:00)
[2017-08-15] MEDS: oxyCODONE/APAP 10/325MG TABLET PO PRN ×3 (07:15→19:56)
[2017-08-15 07:33] LABS: ALT/SGPT 21 U/l (0-40); Albumin 3.7 gm/dL (3.2-5.2); Albumin/Globulin Ratio 1.5 (1.0-2.3); Alkaline Phosphatase 33 U/L (39-117); Bilirubin,Direct < 0.2 mg/dL (0.0-0.3); Blood Urea Nitrogen 6 mg/dl (6-20); Gamma Glutamyl Transpeptidase 95 U/L (5-36); Uric Acid 2.2 mg/dL (2.5-8.0)
[2017-08-15] MEDS: CITALOPRAM 20 MG TABLET PO SCH (08:47)
[2017-08-15] MEDS: amLODIPine 10 MG TABLET PO SCH (08:47)
[2017-08-15] MEDS: LISINOPRIL 20 MG TABLET PO SCH ×2 (08:47→21:08)
[2017-08-15] MEDS: METOPROLOL TARTRATE 25 MG TABLET PO SCH (08:47)
[2017-08-15] MEDS: NORGESTIMATE ETHINYL ESTRADIOL PO SCH (08:48)
[2017-08-15] MEDS: fentaNYL 100 MCG/2 ML VIAL IV PRN ×3 (08:57→21:13)
--- NOTE | 2017-08-15 14:52 | General Surgery Progress Note ---
Subjective Patient reports: feels better, pain is less, flatus, bowel movement, afebrile Narrative: Note initiated : 08/15/17 at 2:49 pm Service Date, if different from initiated Date: [ 14 August 2017] Patient: Kelly Nj 42 y/o F admitted on 08/12/17 for Nausea, Abdominal Pain /Inflammatory Bowel Disease. Chief Complaint: [patient feels much better;her right lower quadrant pain and tenderness is better. She denies nausea. Her diarrhea is decreasing. Her white blood count is increase today but clinically she is much improved] Objective Temp Pulse Resp BP Pulse Ox 97.7 F 74 16 128/78 94 08/15/17 12:00 08/15/17 12:00 08/15/17 12:00 08/15/17 12:00 08/15/17 12:00 - Additional Data Intake & Output - Last 24 hours: Intake & Output 08/13/17 08/14/17 08/15/17 08/16/17 05:59 05:59 05:59 05:59 Intake Total 4179 / 4179 3880 / 3880 6853 / 6853 1480 / 1480 Output Total 975 / 975 5550 / 5550 2304 / 2304 Balance 3204 / 3204 -1670 / -1670 4549 / 4549 1480 / 1480 Weight 168 lb 162 lb 183 lb 4.8 oz 183 lb 4.8 oz - General physical appearance well developed, well nourished, no distress - Eyes PERRL, normal ocular movement - ENT normal pinna, normal nares, normal mucosa, no hearing loss, no congestion - Neck no masses, no bruits, trachea midline, no lymphadectomy, no venous distension - Respiratory normal expansion, normal respiratory effort, clear to percussion, clear to auscultation - Cardiovascular Cardiovascular exam: Present: normal rate and rhythm, RRR, +S1, +S2. Absent: JVD - Abdomen tender (moderate tenderness in right lower quadrant with absent tenderness and left lower quadrant; good active bowel sounds), bowel sounds (present), surgical scars (none), masses (none) - Integumentary no rash, no growths, no abnormal pigmentation - Neurologic normal coordination, normal sensation - Musculoskeletal normal gait, normal posture - Psychiatric oriented to time, oriented to person, oriented to place, speech is normal, memory intact - Labs 08/15/17 04:38 08/15/17 04:38 Diabetes panel 08/15/17 Range/Units 04:38 Sodium 140 (133-145) mmol/L Potassium 3.6 (3.3-5.1) mmol/L Chloride 103 (96-108) mmol/L Carbon Dioxide 21 L (22-30) mmol/L BUN 6 (6-20) mg/dl Creatinine 0.7 (0.6-1.1) mg/dl Glucose 148 H (70-105) mg/dL Calcium 9.0 (8.6-10.4) mg/dl AST 13 (0-37) U/l ALT 21 (0-40) U/l Alkaline Phosphatase 33 L (39-117) U/L Total Protein 6.1 (5.9-8.4) gm/dL Albumin 3.7 (3.2-5.2) gm/dL Triglycerides 81 (<150) mg/dl Calcium panel 08/15/17 Range/Units 04:38 Calcium 9.0 (8.6-10.4) mg/dl Phosphorus 3.7 (2.7-4.5) mg/dL Albumin 3.7 (3.2-5.2) gm/dL Pituitary panel 08/15/17 Range/Units 04:38 Sodium 140 (133-145) mmol/L Potassium 3.6 (3.3-5.1) mmol/L Chloride 103 (96-108) mmol/L Carbon Dioxide 21 L (22-30) mmol/L BUN 6 (6-20) mg/dl Creatinine 0.7 (0.6-1.1) mg/dl Glucose 148 H (70-105) mg/dL Calcium 9.0 (8.6-10.4) mg/dl Adrenal panel 08/15/17 Range/Units 04:38 Sodium 140 (133-145) mmol/L Potassium 3.6 (3.3-5.1) mmol/L Chloride 103 (96-108) mmol/L Carbon Dioxide 21 L (22-30) mmol/L BUN 6 (6-20) mg/dl Creatinine 0.7 (0.6-1.1) mg/dl Glucose 148 H (70-105) mg/dL Calcium 9.0 (8.6-10.4) mg/dl Total Bilirubin 0.2 (0.0-1.0) mg/dL AST 13 (0-37) U/l ALT 21 (0-40) U/l Alkaline Phosphatase 33 L (39-117) U/L Total Protein 6.1 (5.9-8.4) gm/dL Albumin 3.7 (3.2-5.2) gm/dL Assessment and Plan (1) Inflammatory bowel disease Status: Acute Assessment and plan: Will continue on present therapy for 3-4 days. Clear liquids will be added. IV will be decreased to 50 cc/h. Current Visit: No (2) Hypertension Status: Acute Current Visit: No - Time Spent With Patient Total time spent is greater than 50% in coordination of care (as documented) at patient's floor/unit and/or counseling patient:
--- NOTE | 2017-08-15 14:55 | General Surgery Progress Note ---
Subjective Patient reports: feels better, pain is less, tolerating a regular diet, flatus, bowel movement, diarrhea, afebrile Narrative: Note initiated : 08/15/17 at 2:53 pm Service Date, if different from initiated Date: [] Patient: Kelly Nj 42 y/o F admitted on 08/12/17 for Nausea, Abdominal Pain /Inflammatory Bowel Disease. Chief Complaint: [patient feels much better. She is tolerating a soft diet. She is only had 2 loose bowel movements today her white blood count is up to 19, 006 but she is afebrile. Her general evaluation significantly improved compared to use. The panel for inflammatory bowel disease is negative so steroids will be discontinued and she will be continued on IV antibiotics. Anticipate that she can be discharged home tomorrow and follow up in the office. She will need to have colonoscopy in the next 2 weeks after her abdominal tenderness has improved.] Objective Temp Pulse Resp BP Pulse Ox 97.7 F 74 16 128/78 94 08/15/17 12:00 08/15/17 12:00 08/15/17 12:00 08/15/17 12:00 08/15/17 12:00 - Additional Data Intake & Output - Last 24 hours: Intake & Output 08/13/17 08/14/17 08/15/17 08/16/17 05:59 05:59 05:59 05:59 Intake Total 4179 / 4179 3880 / 3880 6853 / 6853 1480 / 1480 Output Total 975 / 975 5550 / 5550 2304 / 2304 Balance 3204 / 3204 -1670 / -1670 4549 / 4549 1480 / 1480 Weight 168 lb 162 lb 183 lb 4.8 oz 183 lb 4.8 oz - General physical appearance well developed, well nourished, no distress - Eyes PERRL, normal ocular movement - ENT normal pinna, normal nares, normal mucosa, no hearing loss, no congestion - Neck no masses, no bruits, trachea midline, no lymphadectomy, no venous distension - Respiratory normal respiratory effort, clear to auscultation - Cardiovascular Cardiovascular exam: Present: normal rate and rhythm, RRR, +S1, +S2. Absent: JVD - Abdomen tender (mmild tenderness in right lower quadrant without guarding or rebound; no palpable masses;;; good active bowel sounds), bowel sounds (present), surgical scars (none), masses (none) - Integumentary no rash, no growths, no abnormal pigmentation - Neurologic normal coordination, normal sensation - Musculoskeletal normal gait, normal posture - Psychiatric oriented to time, oriented to person, oriented to place, speech is normal, memory intact - Labs 08/15/17 04:38 08/15/17 04:38 Diabetes panel 08/15/17 Range/Units 04:38 Sodium 140 (133-145) mmol/L Potassium 3.6 (3.3-5.1) mmol/L Chloride 103 (96-108) mmol/L Carbon Dioxide 21 L (22-30) mmol/L BUN 6 (6-20) mg/dl Creatinine 0.7 (0.6-1.1) mg/dl Glucose 148 H (70-105) mg/dL Calcium 9.0 (8.6-10.4) mg/dl AST 13 (0-37) U/l ALT 21 (0-40) U/l Alkaline Phosphatase 33 L (39-117) U/L Total Protein 6.1 (5.9-8.4) gm/dL Albumin 3.7 (3.2-5.2) gm/dL Triglycerides 81 (<150) mg/dl Calcium panel 08/15/17 Range/Units 04:38 Calcium 9.0 (8.6-10.4) mg/dl Phosphorus 3.7 (2.7-4.5) mg/dL Albumin 3.7 (3.2-5.2) gm/dL Pituitary panel 08/15/17 Range/Units 04:38 Sodium 140 (133-145) mmol/L Potassium 3.6 (3.3-5.1) mmol/L Chloride 103 (96-108) mmol/L Carbon Dioxide 21 L (22-30) mmol/L BUN 6 (6-20) mg/dl Creatinine 0.7 (0.6-1.1) mg/dl Glucose 148 H (70-105) mg/dL Calcium 9.0 (8.6-10.4) mg/dl Adrenal panel 08/15/17 Range/Units 04:38 Sodium 140 (133-145) mmol/L Potassium 3.6 (3.3-5.1) mmol/L Chloride 103 (96-108) mmol/L Carbon Dioxide 21 L (22-30) mmol/L BUN 6 (6-20) mg/dl Creatinine 0.7 (0.6-1.1) mg/dl Glucose 148 H (70-105) mg/dL Calcium 9.0 (8.6-10.4) mg/dl Total Bilirubin 0.2 (0.0-1.0) mg/dL AST 13 (0-37) U/l ALT 21 (0-40) U/l Alkaline Phosphatase 33 L (39-117) U/L Total Protein 6.1 (5.9-8.4) gm/dL Albumin 3.7 (3.2-5.2) gm/dL Assessment and Plan (1) Inflammatory bowel disease Status: Acute Assessment and plan: Will continue on present therapy for2-3 days. soft diet will be added. IV will be decreased to 50 cc/h. Solu-Medrol is discontinued Probable discharge home in the morning Current Visit: No (2) Hypertension Status: Acute Current Visit: No - Time Spent With Patient Total time spent is greater than 50% in coordination of care (as documented) at patient's floor/unit and/or counseling patient:
[2017-08-15] MEDS: ZOLPIDEM 5 MG TABLET PO PRN (22:29)
[2017-08-16] MEDS: metroNIDAZOLE 500 MG/100 ML BAG IV SCH ×3 (01:09→14:06)
[2017-08-16] MEDS: 0.9 % SODIUM CHLORIDE 1,000 ML IV SCH ×2 (05:11→12:41)
[2017-08-16] MEDS: PIPERACILLIN SODIUM/TAZOBACTAM 3.375 GM in DEXTROSE 5% IN WATER 50 ML IV SCH ×2 (05:11→12:40)
[2017-08-16] MEDS: 0.9 % SODIUM CHLORIDE 10 ML SYRINGE IV SCH ×2 (05:40→14:07)
[2017-08-16] MEDS: PANTOPRAZOLE 40 MG VIAL IV SCH ×2 (07:47→17:15)
[2017-08-16] MEDS: oxyCODONE/APAP 10/325MG TABLET PO PRN ×2 (08:03→15:15)
[2017-08-16 08:28] LABS: ALT/SGPT 21 U/l (0-40); Albumin 3.3 gm/dL (3.2-5.2); Albumin/Globulin Ratio 1.6 (1.0-2.3); Alkaline Phosphatase 27 U/L (39-117); Bilirubin,Direct < 0.2 mg/dL (0.0-0.3); Blood Urea Nitrogen 5 mg/dl (6-20); Gamma Glutamyl Transpeptidase 75 U/L (5-36)
[2017-08-16 08:45] LABS: Basophils # (Auto) 0.1 K/mcL (0.0-0.3); Basophils % (Auto) 0.8 % (0.0-2.0); Eosinophils # (Auto) 0.1 K/mcL (0.0-0.7); Eosinophils % (Auto) 0.5 % (0.0-7.0); Granulocytes % (Auto) 59.2 % (38.0-78.0); Lymphocytes # (Auto) 4.6 K/mcL (1.5-4.8); Lymphocytes % (Auto) 34.4 % (15.5-49.0); Mean Cell Volume 93.4 fL (80.0-100.0); Mean Corpuscular HGB Conc 33.9 g/dL (31.0-36.0); Mean Corpuscular Hemoglobin 31.7 pg (26.0-34.0); Monocytes # (Auto) 0.7 K/mcL (0.1-0.9); Monocytes % (Auto) 5.1 % (1.0-12.0); Platelet Count 378 K/mcL (140-440); Red Cell Distribution Width 12.4 % (11.5-14.5)
[2017-08-16] MEDS: amLODIPine 10 MG TABLET PO SCH (10:53)
[2017-08-16] MEDS: METOPROLOL TARTRATE 25 MG TABLET PO SCH (10:53)
[2017-08-16] MEDS: LISINOPRIL 20 MG TABLET PO SCH (10:53)
[2017-08-16] MEDS: CITALOPRAM 20 MG TABLET PO SCH (10:53)
[2017-08-16] MEDS: NORGESTIMATE ETHINYL ESTRADIOL PO SCH (12:40)
[2017-08-16] MEDS: fentaNYL 100 MCG/2 ML VIAL IV PRN (12:42)
--- NOTE | 2017-08-16 13:59 | Discharge Summary ---
Providers - Providers Patient information: Note initiated : 08/16/17 at 1:54 pm Service Date, if different from initiated Date: [] Patient: Kelly Nj 42 y/o F admitted on 08/12/17 for Nausea, Abdominal Pain /Inflammatory Bowel Disease. Chief Complaint: [] Date of admission: 08/12/17 Discharge date: 08/16/17 Attending physician: Cain Lopez Hospitalization Hospital course: 42-year-old female who is admitted with apparent segmental colitis. The patient was previously admitted on 08/02/17 through 08/06/17. At that time she presented with history of abdominal pain nausea vomiting and diarrhea.. CT of the abdomen showed thickening of the terminal ileum. She was treated with antibiotics and Solu-Medrol. She improved and was discharged on the in stable condition. On 11 August 2017 she awakened with right sided abdominal pain with nausea vomiting fever and chills. She had multiple loose stools. She was seen in the emergency room with white blood count of 26,000. CT of the abdomen show concentric wall thickening of the distal right colon and proximal transverse colon with inflammation of the pericolonic fat the changes that she had in her terminal ileum was significantly improved. Patient is admitted for symptomatic treatment with the understanding that she'll eventually need to have colonoscopy. Since admission she has gradually improved. Her abdominal pain has resolved. The diarrhea has resolved and she is on 36 hours without diarrhea. She had leukocytosis but this decreased after the Solu-Medrol was discontinued. The inflammatory bowel disease panel was negative for ulcerative colitis and Crohn's disease. Clinically she is totally asymptomatic at the present time. She is tolerating a regular diet.. Her white blood count has decreased to 12,000 and she is afebrile. She will be discharged home on Levaquin and Flagyl for 7 days and I will follow her up in the office in one week. The plan is to wait to 4 weeks AND THEN SCHEDULE HER FOR colonoscopy. Discharge diagnosis: acute segmental colitis Secondary discharge diagnosis: Terminal ileitis Reason for admission: abdominal pain nausea vomiting and diarrhea Procedures: None Pertinent studies/significant findings: CT of abdomen and pelvis with IV contrast Complications: None Exam Temp Pulse Resp BP Pulse Ox 97 F 75 18 136/86 98 08/16/17 12:08 08/16/17 08:00 08/16/17 12:08 08/16/17 12:08 08/16/17 12:08 - General physical appearance well developed, well nourished, no distress - Eyes PERRL, normal ocular movement - ENT normal pinna, normal nares, normal mucosa, no hearing loss, no congestion - Head Head exam IM: Present: atraumatic, normocephalic - Neck no masses, no bruits, trachea midline, no lymphadectomy, no venous distension - Cardiovascular Cardiovascular exam IM: Present: normal rate and rhythm - Respiratory normal expansion, normal respiratory effort, clear to percussion, clear to auscultation - Abdomen Abdomen: Present: soft, non tender (she no longer has tenderness in her right abdomen or pelvis), bowel sounds Hernia: Present: none - Genitourinary Present: normal external genitalia - Integumentary Present: no rash, no growths, no abnormal pigmentation - Neurologic Present: normal coordination, normal sensation - Musculoskeletal Present: normal gait, normal posture - Psychiatric Present: oriented to time, oriented to person, oriented to place, speech is normal, memory intact Discharge Plan - Patient/Caregiver Discharge Instructions Activity: increase activity as tolerated Diet: Regular Diet Additional Instructions: Continue soft diet and advance as tolerated Prescriptions: Levofloxacin [Levaquin] 500 mg PO DAILY #10 tablet metroNIDAZOLE [Metronidazole] 500 mg PO TID #30 tablet oxyCODONE HCL/ACETAMINOPHEN [Endocet 10-325 mg Tablet] 1 each PO Q6HP PRN #60 tab PRN Reason: Pain Level > 6 oxyCODONE/APAP [Percocet 10-325Mg] 1 tab PO Q6HP PRN #30 tablet PRN Reason: Pain Level 3-6 - Follow up Plan Follow up with: Cain Lopez MD [Physician] - 08/21/17 2:45 pm Maggy Toure ARNP [Primary Care Provider] - Disposition: Home, Self-Care Prognosis: Good Rehab Potential: Good I certify that the patient requires SNF services.: No Overall status at discharge: patient is not back to baseline Pending Studies Resuscitation Status Full Code Diet GI Soft/Transitional Start Marion Aug 14 499 Acetaminophen (Tylenol) 650 mg PO Q6HP PRN PRN Reason: PAIN/FEVER > 101 Last Admin: 08/12/17 19:53 Dose: 650 mg Amlodipine Besylate (Norvasc) 10 mg PO DAILY JAYLYN Last Admin: 08/16/17 10:53 Dose: 10 mg Admin: 08/15/17 08:47 Dose: 10 mg Admin: 08/14/17 08:34 Dose: 10 mg Admin: 08/13/17 09:11 Dose: 10 mg Citalopram Hydrobromide (Celexa) 20 mg PO DAILY [facility] Last Admin: 08/16/17 10:53 Dose: 20 mg Admin: 08/15/17 08:47 Dose: 20 mg Admin: 08/14/17 08:34 Dose: 20 mg Admin: 08/13/17 09:10 Dose: 20 mg Fentanyl (Sublimaze) 25 mcg IV Q30MIN PRN PRN Reason: PAIN LEVEL > 6 Last Admin: 08/16/17 12:42 Dose: 25 mcg Admin: 08/15/17 21:13 Dose: 25 mcg Admin: 08/15/17 17:00 Dose: 25 mcg Admin: 08/15/17 08:57 Dose: 25 mcg Admin: 08/14/17 20:26 Dose: 25 mcg Admin: 08/14/17 14:12 Dose: 25 mcg Admin: 08/14/17 05:25 Dose: 25 mcg Admin: 08/13/17 21:10 Dose: 25 mcg Admin: 08/12/17 15:06 Dose: 25 mcg Admin: 08/12/17 13:43 Dose: 25 mcg Sodium Chloride (Sodium Chloride 0.9%) 1,000 mls @ 150 mls/hr IV .Q6H40M [facility] Last Admin: 08/16/17 12:41 Dose: 150 mls/hr Infusion: 08/16/17 06:02 Dose: 150 mls/hr Admin: 08/16/17 05:11 Dose: Not Given Admin: 08/15/17 23:21 Dose: 150 mls/hr Admin: 08/15/17 17:00 Dose: Not Given Infusion: 08/15/17 15:30 Dose: 150 mls/hr Admin: 08/15/17 08:49 Dose: 150 mls/hr Infusion: 08/15/17 05:15 Dose: 150 mls/hr Admin: 08/15/17 03:45 Dose: Not Given Admin: 08/14/17 22:34 Dose: 150 mls/hr Admin: 08/14/17 17:02 Dose: Not Given Infusion: 08/14/17 15:14 Dose: 150 mls/hr Admin: 08/14/17 08:33 Dose: 150 mls/hr Infusion: 08/14/17 06:22 Dose: 150 mls/hr Admin: 08/14/17 00:16 Dose: Not Given Admin: 08/13/17 23:41 Dose: 150 mls/hr Infusion: 08/13/17 15:51 Dose: 150 mls/hr Admin: 08/13/17 09:10 Dose: 150 mls/hr Infusion: 08/13/17 05:35 Dose: 150 mls/hr Admin: 08/13/17 04:38 Dose: Not Given Admin: 08/12/17 22:54 Dose: 150 mls/hr Infusion: 08/12/17 22:53 Dose: 150 mls/hr Admin: 08/12/17 14:00 Dose: 150 mls/hr Piperacillin Sod/Tazobactam (Sod 3.375 gm/ Dextrose) 50 mls @ 100 mls/hr IV Q6H JAYLYN Last Admin: 08/16/17 12:40 Dose: 100 mls/hr Infusion: 08/16/17 07:37 Dose: 0 mls/hr Admin: 08/16/17 05:11 Dose: 100 mls/hr Infusion: 08/15/17 23:51 Dose: 100 mls/hr Admin: 08/15/17 23:21 Dose: 100 mls/hr Infusion: 08/15/17 18:10 Dose: 0 mls/hr Admin: 08/15/17 17:30 Dose: 100 mls/hr Infusion: 08/15/17 12:49 Dose: 0 mls/hr Admin: 08/15/17 12:13 Dose: 100 mls/hr Infusion: 08/15/17 08:58 Dose: 0 mls/hr Admin: 08/15/17 05:20 Dose: 100 mls/hr Infusion: 08/15/17 00:53 Dose: 100 mls/hr Admin: 08/15/17 00:23 Dose: 100 mls/hr Infusion: 08/14/17 18:51 Dose: 100 mls/hr Admin: 08/14/17 18:21 Dose: 100 mls/hr Infusion: 08/14/17 12:40 Dose: 0 mls/hr Admin: 08/14/17 12:00 Dose: 100 mls/hr Infusion: 08/14/17 06:00 Dose: 0 mls/hr Admin: 08/14/17 05:22 Dose: 100 mls/hr Infusion: 08/14/17 00:11 Dose: 100 mls/hr Admin: 08/13/17 23:41 Dose: 100 mls/hr Infusion: 08/13/17 19:00 Dose: 100 mls/hr Admin: 08/13/17 18:30 Dose: 100 mls/hr Infusion: 08/13/17 14:19 Dose: 0 mls/hr Admin: 08/13/17 11:40 Dose: 100 mls/hr Infusion: 08/13/17 06:48 Dose: 0 mls/hr Admin: 08/13/17 05:32 Dose: 100 mls/hr Infusion: 08/13/17 02:44 Dose: 0 mls/hr Admin: 08/13/17 00:15 Dose: 100 mls/hr Infusion: 08/12/17 19:52 Dose: 0 mls/hr Admin: 08/12/17 19:09 Dose: 100 mls/hr Metronidazole (Flagyl) 500 mg in 100 mls @ 100 mls/hr IV Q6H JAYLYN Last Admin: 08/16/17 07:47 Dose: 100 mls/hr Infusion: 08/16/17 02:10 Dose: 0 mls/hr Admin: 08/16/17 01:09 Dose: 100 mls/hr Infusion: 08/15/17 20:55 Dose: 100 mls/hr Admin: 08/15/17 19:55 Dose: 100 mls/hr Infusion: 08/15/17 17:30 Dose: 0 mls/hr Admin: 08/15/17 13:22 Dose: 100 mls/hr Infusion: 08/15/17 08:50 Dose: 0 mls/hr Admin: 08/15/17 07:10 Dose: 100 mls/hr Infusion: 08/15/17 02:25 Dose: 0 mls/hr Admin: 08/15/17 01:25 Dose: 100 mls/hr Infusion: 08/14/17 20:17 Dose: 100 mls/hr Admin: 08/14/17 19:17 Dose: 100 mls/hr Infusion: 08/14/17 15:35 Dose: 0 mls/hr Admin: 08/14/17 14:31 Dose: 100 mls/hr Infusion: 08/14/17 13:31 Dose: 100 mls/hr Infusion: 08/14/17 09:40 Dose: 0 mls/hr Admin: 08/14/17 08:44 Dose: 100 mls/hr Infusion: 08/14/17 06:25 Dose: 0 mls/hr Admin: 08/14/17 01:01 Dose: 100 mls/hr Infusion: 08/13/17 20:34 Dose: 100 mls/hr Admin: 08/13/17 19:34 Dose: 100 mls/hr Infusion: 08/13/17 14:19 Dose: 0 mls/hr Admin: 08/13/17 12:55 Dose: 100 mls/hr Infusion: 08/13/17 09:18 Dose: 0 mls/hr Admin: 08/13/17 07:42 Dose: 100 mls/hr Infusion: 08/13/17 04:46 Dose: 0 mls/hr Admin: 08/13/17 02:09 Dose: 100 mls/hr Lisinopril (Zestril) 20 mg PO BID JAYLYN Last Admin: 08/16/17 10:53 Dose: 20 mg Admin: 08/15/17 21:08 Dose: 20 mg Admin: 08/15/17 08:47 Dose: 20 mg Admin: 08/14/17 20:26 Dose: 20 mg Admin: 08/14/17 08:34 Dose: 20 mg Admin: 08/13/17 21:02 Dose: 20 mg Admin: 08/13/17 09:10 Dose: 20 mg Admin: 08/12/17 21:29 Dose: 20 mg Metoprolol Tartrate (Lopressor) 25 mg PO DAILY JAYLYN Last Admin: 08/16/17 10:53 Dose: 25 mg Admin: 08/15/17 08:47 Dose: 25 mg Admin: 08/14/17 08:34 Dose: 25 mg Admin: 08/13/17 09:10 Dose: 25 mg Morphine Sulfate (Morphine) 4 mg IV Q2HP PRN PRN Reason: PAIN LEVEL > 6 Last Admin: 08/13/17 19:34 Dose: 4 mg Oxycodone/Acetaminophen (Percocet 10-325mg) 1 tab PO Q6HP PRN PRN Reason: PAIN LEVEL 3-6 Last Admin: 08/16/17 08:03 Dose: 1 tab Admin: 08/15/17 19:56 Dose: 1 tab Admin: 08/15/17 14:19 Dose: 1 tab Admin: 08/15/17 07:15 Dose: 1 tab Admin: 08/14/17 19:22 Dose: 1 tab Admin: 08/14/17 10:50 Dose: 1 tab Admin: 08/14/17 02:31 Dose: 1 tab Admin: 08/13/17 17:58 Dose: 1 tab Admin: 08/13/17 11:39 Dose: 1 tab Admin: 08/13/17 05:37 Dose: 1 tab Admin: 08/12/17 21:29 Dose: 1 tab Pantoprazole Sodium (Protonix) 40 mg IV BIDAC [facility] Last Admin: 08/16/17 07:47 Dose: 40 mg Admin: 08/15/17 17:00 Dose: 40 mg Admin: 08/15/17 07:10 Dose: 40 mg Admin: 08/14/17 17:01 Dose: 40 mg Admin: 08/14/17 08:33 Dose: 40 mg Admin: 08/13/17 17:59 Dose: 40 mg Admin: 08/13/17 07:42 Dose: 40 mg Norgestimate Ethinyl (Estradiol 1 Tab) 1 dose PO DAILY [facility] Last Admin: 08/16/17 12:40 Dose: 1 dose Admin: 08/15/17 08:48 Dose: Admin: 08/14/17 13:22 Dose: Not Given Promethazine HCl (Phenergan) 12.5 mg IV Q4-6HP PRN PRN Reason: Nausea And Vomiting Last Admin: 08/14/17 08:33 Dose: 12.5 mg Sodium Chloride (Saline Flush) 10 ml IV Q8 JAYLYN Last Admin: 08/16/17 05:40 Dose: Not Given Admin: 08/15/17 21:09 Dose: Not Given Admin: 08/15/17 13:22 Dose: 10 ml Admin: 08/15/17 05:05 Dose: Not Given Admin: 08/14/17 22:38 Dose: Not Given Admin: 08/14/17 16:23 Dose: Not Given Admin: 08/14/17 05:22 Dose: Not Given Admin: 08/13/17 21:04 Dose: Not Given Admin: 08/13/17 17:59 Dose: 10 ml Admin: 08/13/17 14:19 Dose: 10 ml Admin: 08/13/17 05:33 Dose: Not Given Admin: 08/12/17 21:31 Dose: Not Given Zolpidem Tartrate (Ambien) 10 mg PO HSP PRN PRN Reason: Insomnia Last Admin: 08/15/17 22:29 Dose: 10 mg Admin: 08/14/17 22:32 Dose: 10 mg Admin: 08/13/17 21:11 Dose: 10 mg Admin: 08/12/17 22:02 Dose: 10 mg Shift Summary 08/16/17 03:46 Shift Summary by Luis Alfredo Garcia on RA. Up ad zehra. Ambulates in halls frequently. IV to LFA running NS @ 150mL/hr. Receiving intermittent antibiotics. Received 10mg Percocet x1 and 25mcg Fentanyl x1. Rested well after Ambien administration at HS. No complaints of nausea this shift. Very pleasant and cooperative w/cares. Eager to discharge home, which will most likely be today. Initialized on 08/16/17 03:46 - END OF NOTE
--- NOTE | 2017-08-18 10:14 | Emergency Department Note ---
Abdominal Pain HPI - General Chief Complaint: Nausea/Vomiting/Diarrhea Stated Complaint: nausea, abdominal pain Time Seen by Provider: 08/12/17 12:52 Source: patient Mode of arrival: ambulatory Limitations: no limitations - History of Present Illness HPI Narrative: 42 year old female presents with abdominal pain, nausea and vomiting. Was discharged from the hospital a few days ago after she was recently diagnosed with Crohn's. She states they didn't do surgery because she got better with medications but now she is worse again. + chills, unknown fever. No diarrhea or constipation. Last BM yesterday. She does have a lot of nausea and has vomited twice in the last 24 hours. No home txs. Consistency: constant Improves with: nothing Worsens with: nothing Associated symptoms: Reports: nausea, vomiting, chills. Denies: diarrhea, constipation, dysuria, hematuria, anorexia, syncope - Related Data Home Medications Medication Instructions Recorded Confirmed Norgestimate-Ethinyl Estradiol 1 each PO DAILY 05/24/15 08/12/17 [Ortho Tri-Cyclen 28 Tablet] Citalopram [Celexa] 20 mg PO DAILY 08/02/17 08/12/17 Cyclobenzaprine HCl 5 mg PO DAILY PRN 08/02/17 08/12/17 Metoprolol Tartrate [Lopressor] 25 mg PO DAILY 08/02/17 08/12/17 Previous Rx's Medication Instructions Recorded Lisinopril [Zestril] 20 mg PO BID #60 tablet 08/06/17 Zolpidem [Ambien] 10 mg PO HSP PRN #30 tab 08/06/17 amLODIPine [Norvasc] 10 mg PO DAILY #30 tablet 08/06/17 mesalamine 800 mg tablet,delayed 800 mg PO TID #90 tablet. 08/07/17 release Levofloxacin [Levaquin] 500 mg PO DAILY #10 tab 08/16/17 metroNIDAZOLE [Metronidazole] 500 mg PO TID #30 tab 08/16/17 oxyCODONE HCL/ACETAMINOPHEN 1 each PO Q6HP PRN #60 tab 08/16/17 [Endocet 10-325 mg Tablet] Allergies Allergy/AdvReac Type Severity Reaction Status Date / Time etodolac AdvReac Mild Nausea Verified 08/12/17 12:43 Review of Systems All systems ED: reviewed and negative except as stated. 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 Absent: conjunctival injection ENT: mucous membranes moist Neck: Present: normal inspection, trachea midline. Absent: tenderness, lymphadenopathy Chest: Present: symmetric chest wall rise Respiratory: Present: normal lung sounds bilaterally. Absent: respiratory distress, wheezes, accessory muscle use Cardiovascular: Present: regular rate, normal heart sounds Abdominal: Present: soft, tenderness (diffuse abd tenderness t/o), normal bowel sounds. Absent: distention Extremities: Present: normal inspection, normal capillary refill. Absent: pedal edema Neurological: Present: alert, oriented X3 Psychiatric: Present: normal affect, normal mood Skin: Present: warm, dry, intact, normal color. Absent: rash, cyanosis, diaphoresis, erythema Course Course Narrative: Spoke with Dr. Lopez, surgeon who previously admitted and cared for patient. He agrees to accept patient. I will put in holding orders. Vital Signs Temperature 97.6 F 08/12/17 12:39 Pulse Rate 101 H 08/12/17 12:39 Respiratory Rate 18 08/12/17 12:39 Blood Pressure 173/94 08/12/17 12:39 Pulse Oximetry (%) 100 08/12/17 12:39 Temperature 97.9 F 08/16/17 17:15 Pulse Rate 80 08/16/17 17:15 Respiratory Rate 16 08/16/17 17:15 Blood Pressure 169/75 08/16/17 17:15 Pulse Oximetry (%) 98 08/16/17 17:15 Abdominal Pain - Lab Data Lab results reviewed: Yes I reviewed the patient's lab results. Result diagrams: 08/16/17 06:23 08/16/17 06:23 Lab Results 08/12/17 08/12/17 08/12/17 Range/Units 13:03 13:04 14:16 WBC 27.5 H (4.5-11.0) K/mcL RBC 4.73 (4.00-5.20) M/mcL Hgb 14.6 (12.0-15.0) g/dL Hct 43.7 (36.0-48.0) % MCV 92.3 (80.0-100.0) fL MCH 30.9 (26.0-34.0) pg MCHC 33.5 (31.0-36.0) g/dL RDW 12.6 (11.5-14.5) % Plt Count 563 H (140-440) K/mcL MPV 7.7 (7.4-10.4) fL Gran % 85.7 H (38.0-78.0) % Lymph % (Auto) 10.7 L (15.5-49.0) % [place] % (Auto) 2.3 (1.0-12.0) % Eos % (Auto) 0.1 (0.0-7.0) % Baso % (Auto) 1.2 (0.0-2.0) % Gran # 23.6 H (1.8-8.0) K/mcL Lymph # (Auto) 2.9 (1.5-4.8) K/mcL [place] # (Auto) 0.6 (0.1-0.9) K/mcL Eos # (Auto) 0 (0.0-0.7) K/mcL Baso # (Auto) 0.3 (0.0-0.3) K/mcL Differential Comment (()) VBG Lactic Acid 2.0 (0.5-2.2) mmol/L Sodium 137 (133-145) mmol/L Potassium 3.6 (3.3-5.1) mmol/L Chloride 94 L (96-108) mmol/L Carbon Dioxide 27 (22-30) mmol/L Anion Gap 16.0 (8-16) BUN 12 (6-20) mg/dl Creatinine 0.7 (0.6-1.1) mg/dl GFR Calculation 108 Glucose 171 H (70-105) mg/dL Calcium 9.0 (8.6-10.4) mg/dl Total Bilirubin 0.4 (0.0-1.0) mg/dL AST 16 (0-37) U/l ALT 26 (0-40) U/l Alkaline Phosphatase 42 (39-117) U/L Total Protein 7.4 (5.9-8.4) gm/dL Albumin 4.5 (3.2-5.2) gm/dL Globulin 2.9 (2.2-3.7) gm/dL Albumin/Globulin Ratio 1.6 (1.0-2.3) Lipase 28 (7-60) U/L Urine HCG, Qual (<20 mIU/ml) 08/12/17 Range/Units 14:55 WBC (4.5-11.0) K/mcL RBC (4.00-5.20) M/mcL Hgb (12.0-15.0) g/dL Hct (36.0-48.0) % MCV (80.0-100.0) fL MCH (26.0-34.0) pg MCHC (31.0-36.0) g/dL RDW (11.5-14.5) % Plt Count (140-440) K/mcL MPV (7.4-10.4) fL Gran % (38.0-78.0) % Lymph % (Auto) (15.5-49.0) % [place] % (Auto) (1.0-12.0) % Eos % (Auto) (0.0-7.0) % Baso % (Auto) (0.0-2.0) % Gran # (1.8-8.0) K/mcL Lymph # (Auto) (1.5-4.8) K/mcL [place] # (Auto) (0.1-0.9) K/mcL Eos # (Auto) (0.0-0.7) K/mcL Baso # (Auto) (0.0-0.3) K/mcL Differential Comment (()) VBG Lactic Acid (0.5-2.2) mmol/L Sodium (133-145) mmol/L Potassium (3.3-5.1) mmol/L Chloride (96-108) mmol/L Carbon Dioxide (22-30) mmol/L Anion Gap (8-16) BUN (6-20) mg/dl Creatinine (0.6-1.1) mg/dl GFR Calculation Glucose (70-105) mg/dL Calcium (8.6-10.4) mg/dl Total Bilirubin (0.0-1.0) mg/dL AST (0-37) U/l ALT (0-40) U/l Alkaline Phosphatase (39-117) U/L Total Protein (5.9-8.4) gm/dL Albumin (3.2-5.2) gm/dL Globulin (2.2-3.7) gm/dL Albumin/Globulin Ratio (1.0-2.3) Lipase (7-60) U/L Urine HCG, Qual Negative <20 (<20 mIU/ml) - Radiology Data Radiology results reviewed: Yes I reviewed the patient's radiology results. Disposition Pt seen by SERVICE EMPLOYEE/PA only: Yes Clinical Impression: Inflammatory bowel disease Disposition: Xfer As Inpt ([facility]) Condition: Good
== END 2017-08-16 17:30 | disposition home or self-care (01) | DRG 387 ==
LOC: ED 12:39 → MEDSUR 15:49
PROVIDERS: ADMIT Family Medicine Adult Medicine; ATTEND Family Medicine Adult Medicine